=== PATIENT | male | born 1970 | race Caucasian/White ===

== ENCOUNTER 2020-11-01 16:55 | Outpatient (REF) | payer BC, SELFPAY ==
--- NOTE | 2020-11-01 | XR_ITS ---
EXAMINATION: XR CHEST CLINICAL INFORMATION: Fatigue. COMPARISON: Chest x-ray 05/19/2019 TECHNIQUE: 2 views of the chest were obtained. FINDINGS: No significant abnormality is noted involving the heart, lungs, mediastinum, bony thorax or soft tissues. XR/XR chest 2V IMPRESSION: Unremarkable examination.
[2020-11-01 17:39] LABS: Basophils Percent Auto 0.5 % (0-2); Eosinophils Absolute Auto 0.5 X10*3/uL (0.0-0.4); Eosinophils Percent Auto 7.2 % (0-4); Hematocrit 40.5 % (42-52); Hemoglobin 14.1 g/dl (14.0-18.0); Imm Gran Abs Auto 0.02 X10*3/uL (0.00-0.03); Imm Gran Pct Auto 0.3 % (0.0-0.4); Lymphocytes Absolute Auto 2.5 X10*3/uL (1.2-4.9); Lymphocytes Percent Auto 33.2 % (20-40); Mean Corpuscular HGB Conc 34.8 g/dl (31.0-36.0); Mean Corpuscular Hemoglobin 32.3 pg (27.0-33.0); Mean Corpuscular Volume 92.9 fL (80-98); Mean Platelet Volume 10.3 fL (9.4-12.4); Neutrophils Absolute Auto 3.4 X10*3/uL (2.0-8.3); Neutrophils Percent Auto 45.8 % (45-73); Platelet Count 218 X10*3/uL (160-400); Red Blood Count 4.36 X10*6/uL (4.60-5.80); Red Cell Distribution Width 11.3 % (11.0-16.0); White Blood Count 7.5 X10*3/uL (4.8-10.8)
[2020-11-01 17:41] LABS: MANUAL DIFF FLAG NO
[2020-11-01 18:15] LABS: Alanine Aminotransferase 21 U/L (0-40); Albumin Level 4.4 g/dL (3.5-5.0); Alkaline Phosphatase 46 U/L (39-117); Anion Gap 13 (12-20); Aspartate Amino Transferase 18 U/L (5-37); Bilirubin Total 0.4 mg/dL (0.0-1.0); Blood Urea Nitrogen 15 mg/dL (9-16); C Reactive Protein 0.12 mg/dL (< or = 0.50); Calcium 9.1 mg/dL (8.4-10.2); Carbon Dioxide 27 mmol/L (22-29); Chloride 104 mmol/L (96-108); Estimated Glomerular Filt Rate > 60; Glucose Random 88 mg/dL (60-115); Potassium 4.2 mmol/l (3.3-5.1); Sodium 140 mmol/L (135-145); Total Protein 7.1 g/dL (6.5-8.0)
[2020-11-01 18:36] LABS: Prostate Specific Antigen Scr 0.56 ng/mL (<0.05-4.0)
== END 2020-11-01 16:56 | disposition home or self-care (01) ==
LOC: HO.LAB 16:55
PROVIDERS: PCP Internal Medicine; Visit Provider Internal Medicine
DX: R53.83 Other fatigue (principal); E78.00 Pure hypercholesterolemia, unspecified; Z12.5 Encounter for screening for malignant neoplasm of prostate
CPT/HCPCS: 36415; 71046; 80053; 84153; 85025; 86140

== ENCOUNTER 2021-03-14 06:28 | Outpatient (REF) | payer BC, SELFPAY ==
[2021-03-14 07:18] LABS: MANUAL DIFF FLAG NO
[2021-03-14 07:20] LABS: Basophils Absolute Auto 0.1 X10*3/uL (0.0-0.2); Basophils Percent Auto 0.9 % (0-2); Eosinophils Absolute Auto 0.4 X10*3/uL (0.0-0.4); Eosinophils Percent Auto 7.1 % (0-4); Hematocrit 42.3 % (42-52); Hemoglobin 14.1 g/dl (14.0-18.0); Imm Gran Abs Auto 0.01 X10*3/uL (0.00-0.03); Imm Gran Pct Auto 0.2 % (0.0-0.4); Lymphocytes Absolute Auto 1.9 X10*3/uL (1.2-4.9); Mean Corpuscular HGB Conc 33.3 g/dl (31.0-36.0); Mean Corpuscular Hemoglobin 31.4 pg (27.0-33.0); Mean Corpuscular Volume 94.2 fL (80-98); Mean Platelet Volume 10.5 fL (9.4-12.4); Monocytes Absolute Auto 0.8 X10*3/uL (0.1-1.2); Monocytes Percent Auto 14.6 % (2-11); Neutrophils Absolute Auto 2.2 X10*3/uL (2.0-8.3); Neutrophils Percent Auto 41.2 % (45-73); Platelet Count 197 X10*3/uL (160-400); Red Blood Count 4.49 X10*6/uL (4.60-5.80); Red Cell Distribution Width 11.6 % (11.0-16.0); White Blood Count 5.3 X10*3/uL (4.8-10.8)
[2021-03-14 07:28] LABS: Glucose Urine UA NEG (NEG); Leukocyte Esterase Urine NEG (NEG); Nitrite Urine NEG (NEG); Specific Gravity - Urine 1.025 (1.005-1.025); Urine Blood NEG (NEG); Urine Ketones NEG (NEG); Urine Protein NEG (NEG-TRACE)
[2021-03-14 07:37] LABS: Appearance Urine CLEAR; Color Urine YELLOW
[2021-03-14 08:14] LABS: Alanine Aminotransferase 24 U/L (0-40); Albumin Level 4.4 g/dL (3.5-5.0); Alkaline Phosphatase 46 U/L (39-117); Anion Gap 9 (12-20); Aspartate Amino Transferase 20 U/L (5-37); Bilirubin Total 0.9 mg/dL (0.0-1.0); Blood Urea Nitrogen 12 mg/dL (9-16); Calcium 9.3 mg/dL (8.4-10.2); Carbon Dioxide 30 mmol/L (22-29); Chloride 104 mmol/L (96-108); Cholesterol 210 mg/dL; Estimated Glomerular Filt Rate > 60; Glucose Fasting 96 mg/dL (60-99); HDL Cholesterol 57 mg/dL; LDL Cholesterol Calculated 123 mg/dl; Potassium 4.4 mmol/L (3.3-5.1); Sodium 139 mmol/L (135-145); Total Protein 7.1 g/dL (6.5-8.0); Triglycerides 150 mg/dL
[2021-03-14 08:21] LABS: Vitamin D 25-OH Total 34.8 ng/mL (>30)
== END 2021-03-14 06:29 | disposition home or self-care (01) ==
LOC: HO.LAB 06:28
PROVIDERS: PCP Internal Medicine; Visit Provider Internal Medicine
DX: Z00.00 Encounter for general adult medical examination without abnormal findings (principal)
CPT/HCPCS: 36415; 80053; 80061; 81003; 82306; 85025

== ENCOUNTER 2021-07-27 17:12 | Outpatient (REF) | payer BC, SELFPAY ==
[2021-07-27 19:03] LABS: Alanine Aminotransferase 23 U/L (0-40); Albumin Level 4.6 g/dL (3.5-5.0); Alkaline Phosphatase 43 U/L (39-117); Anion Gap 14 (12-20); Aspartate Amino Transferase 22 U/L (5-37); Bilirubin Total 1.2 mg/dL (0.0-1.0); Blood Urea Nitrogen 16 mg/dL (9-16); Calcium 9.6 mg/dL (8.4-10.2); Carbon Dioxide 24 mmol/L (22-29); Chloride 103 mmol/L (96-108); Cholesterol 212 mg/dL; Estimated Glomerular Filt Rate > 60; Glucose Fasting 75 mg/dL (60-99); HDL Cholesterol 58 mg/dL; LDL Cholesterol Calculated 127 mg/dl; Potassium 3.9 mmol/L (3.3-5.1); Sodium 137 mmol/L (135-145); Total Protein 7.4 g/dL (6.5-8.0); Triglycerides 136 mg/dL
== END 2021-07-27 17:13 | disposition home or self-care (01) ==
LOC: HO.LAB 17:12
PROVIDERS: PCP Internal Medicine; Visit Provider Internal Medicine
DX: E78.00 Pure hypercholesterolemia, unspecified (principal); Z86.79 Personal history of other diseases of the circulatory system
CPT/HCPCS: 36415; 80053; 80061

== ENCOUNTER 2021-12-07 15:01 | Outpatient (REF) | payer BC, SELFPAY ==
[2021-12-07 15:51] LABS: Anion Gap 12 (12-20); Blood Urea Nitrogen 14 mg/dL (9-16); C Reactive Protein 0.22 mg/dL (< or = 0.50); Calcium 9.9 mg/dL (8.4-10.2); Carbon Dioxide 27 mmol/L (22-29); Chloride 104 mmol/L (96-108); Estimated Glomerular Filt Rate > 60; Glucose Random 87 mg/dL (60-115); Potassium 4.4 mmol/L (3.3-5.1); Sodium 139 mmol/L (135-145); Uric Acid 7.1 mg/dL (3.4-7.0)
== END 2021-12-07 15:02 | disposition home or self-care (01) ==
LOC: HO.LAB 15:01
PROVIDERS: PCP Internal Medicine; Visit Provider Internal Medicine
DX: M10.9 Gout, unspecified (principal)
CPT/HCPCS: 36415; 80048; 84550; 86140

== ENCOUNTER 2022-04-12 16:54 | Outpatient (REF) | payer BC, SELFPAY ==
[2022-04-12 17:06] LABS: MANUAL DIFF FLAG NO
[2022-04-12 17:40] LABS: Basophils Absolute Auto 0.1 X10*3/uL (0.0-0.2); Basophils Percent Auto 0.8 % (0-2); Eosinophils Absolute Auto 0.5 X10*3/uL (0.0-0.4); Eosinophils Percent Auto 6.3 % (0-4); Hematocrit 40.1 % (42.0-52.0); Hemoglobin 14.1 g/dl (14.0-18.0); Imm Gran Abs Auto 0.02 X10*3/uL (0.00-0.03); Imm Gran Pct Auto 0.3 % (0.0-0.4); Lymphocytes Absolute Auto 2.8 X10*3/uL (1.2-4.9); Lymphocytes Percent Auto 38.7 % (20-40); Mean Corpuscular HGB Conc 35.2 g/dl (31.0-36.0); Mean Corpuscular Hemoglobin 31.8 pg (27.0-33.0); Mean Corpuscular Volume 90.5 fL (80.0-98.0); Mean Platelet Volume 10.5 fL (9.4-12.4); Monocytes Percent Auto 14.3 % (2-11); Neutrophils Absolute Auto 2.9 x10*3/uL (2.0-8.3); Neutrophils Percent Auto 39.6 % (45-73); Platelet Count 201 X10*3/uL (160-400); Red Blood Count 4.43 X10*6/uL (4.60-5.80); Red Cell Distribution Width 11.9 % (11.0-16.0); White Blood Count 7.3 X10*3/uL (4.8-10.8)
[2022-04-12 17:46] LABS: Appearance Urine CLEAR; Color Urine YELLOW; Glucose Urine UA NEG (NEG); Leukocyte Esterase Urine NEG (NEG); Nitrite Urine NEG (NEG); PH 5.5 (5.0-8.0); Specific Gravity - Urine >= 1.030 (1.005-1.025); Urine Blood NEG (NEG); Urine Ketones NEG (NEG); Urine Protein NEG (NEG-TRACE)
[2022-04-12 18:00] LABS: Alanine Aminotransferase 26 U/L (0-40); Albumin Level 4.5 g/dL (3.5-5.0); Alkaline Phosphatase 50 U/L (39-117); Anion Gap 12 (12-20); Aspartate Amino Transferase 22 U/L (5-37); Blood Urea Nitrogen 15 mg/dL (9-16); Calcium 9.2 mg/dL (8.4-10.2); Carbon Dioxide 25 mmol/L (22-29); Chloride 103 mmol/L (96-108); Cholesterol 197 mg/dL; Estimated Glomerular Filt Rate > 60; Glucose Random 79 mg/dL (60-115); HDL Cholesterol 49 mg/dL; LDL Cholesterol Calculated 112 mg/dl; Sodium 136 mmol/L (135-145); Total Protein 7.3 g/dL (6.5-8.0); Triglycerides 184 mg/dL
[2022-04-12 18:22] LABS: Prostate Specific Antigen 0.42 ng/mL (<0.05-4.0)
== END 2022-04-12 16:55 | disposition home or self-care (01) ==
LOC: HO.LAB 16:54
PROVIDERS: PCP Internal Medicine; Visit Provider Internal Medicine
DX: Z00.00 Encounter for general adult medical examination without abnormal findings (principal); Z12.5 Encounter for screening for malignant neoplasm of prostate
CPT/HCPCS: 36415; 80053; 80061; 81003; 84153; 85025

== ENCOUNTER 2023-04-16 06:19 | Outpatient (REF) | payer BC, SELFPAY ==
[2023-04-16 06:28] LABS: MANUAL DIFF FLAG NO
[2023-04-16 07:44] LABS: Basophils Absolute Auto 0.1 X10*3/uL (0.0-0.2); Basophils Percent Auto 0.7 % (0-2); Eosinophils Absolute Auto 0.6 X10*3/uL (0.0-0.4); Eosinophils Percent Auto 8.6 % (0-4); Hematocrit 42.8 % (42.0-52.0); Hemoglobin 14.6 g/dl (14.0-18.0); Imm Gran Abs Auto 0.02 X10*3/uL (0.00-0.03); Imm Gran Pct Auto 0.3 % (0.0-0.4); Lymphocytes Absolute Auto 2.6 X10*3/uL (1.2-4.9); Lymphocytes Percent Auto 38.1 % (20-40); Mean Corpuscular HGB Conc 34.1 g/dl (31.0-36.0); Mean Corpuscular Hemoglobin 31.9 pg (27.0-33.0); Mean Corpuscular Volume 93.4 fL (80.0-98.0); Mean Platelet Volume 10.9 fL (9.4-12.4); Neutrophils Absolute Auto 2.5 x10*3/uL (2.0-8.3); Neutrophils Percent Auto 37.3 % (45-73); Platelet Count 190 X10*3/uL (160-400); Red Blood Count 4.58 X10*6/uL (4.60-5.80); Red Cell Distribution Width 11.8 % (11.0-16.0); White Blood Count 6.7 X10*3/uL (4.8-10.8)
[2023-04-16 07:59] LABS: Alanine Aminotransferase 30 U/L (0-40); Albumin Level 4.5 g/dL (3.5-5.0); Alkaline Phosphatase 48 U/L (39-117); Anion Gap 14 (12-20); Aspartate Amino Transferase 28 U/L (5-37); Bilirubin Total 1.5 mg/dL (0.0-1.0); Blood Urea Nitrogen 14 mg/dL (9-16); Calcium 9.7 mg/dL (8.4-10.2); Carbon Dioxide 25 mmol/L (22-29); Chloride 105 mmol/L (96-108); Cholesterol 191 mg/dL; Estimated Glomerular Filt Rate > 60; Glucose Fasting 100 mg/dL (60-99); HDL Cholesterol 54 mg/dL; LDL Cholesterol Calculated 110 mg/dl; Sodium 140 mmol/L (135-145); Total Protein 7.5 g/dL (6.5-8.0); Triglycerides 138 mg/dL
== END 2023-04-16 06:20 | disposition home or self-care (01) ==
LOC: HO.LAB 06:19
PROVIDERS: PCP Internal Medicine; Visit Provider Internal Medicine
DX: I25.10 Atherosclerotic heart disease of native coronary artery without angina pectoris (principal); E78.00 Pure hypercholesterolemia, unspecified
CPT/HCPCS: 36415; 80053; 80061; 85025

== ENCOUNTER 2024-03-25 06:21 | Outpatient (REF) | payer BC, SELFPAY ==
[2024-03-25 06:42] LABS: MANUAL DIFF FLAG NO
[2024-03-25 07:56] LABS: Appearance Urine Clear; Color Urine Yellow; Glucose Urine UA Negative (Negative); Leukocyte Esterase Urine Negative (Negative); Nitrite Urine Negative (Negative); Urine Blood Negative (Negative); Urine Ketones Negative (Negative); Urine Protein Negative (Neg-Trace)
[2024-03-25 07:57] LABS: Basophils Absolute Auto 0.1 X10*3/uL (0.0-0.2); Basophils Percent Auto 1.3 % (0-2); Eosinophils Absolute Auto 0.4 X10*3/uL (0.0-0.4); Eosinophils Percent Auto 6.3 % (0-4); Hemoglobin 14.5 g/dl (14.0-18.0); Imm Gran Abs Auto 0.01 X10*3/uL (0.00-0.03); Imm Gran Pct Auto 0.2 % (0.0-0.4); Lymphocytes Absolute Auto 2.3 X10*3/uL (1.2-4.9); Lymphocytes Percent Auto 38.1 % (20-40); Mean Corpuscular HGB Conc 34.5 g/dl (31.0-36.0); Mean Corpuscular Hemoglobin 31.9 pg (27.0-33.0); Mean Corpuscular Volume 92.3 fL (80.0-98.0); Mean Platelet Volume 10.5 fL (9.4-12.4); Monocytes Percent Auto 16.1 % (2-11); Neutrophils Absolute Auto 2.3 x10*3/uL (2.0-8.3); Platelet Count 226 X10*3/uL (160-400); Red Blood Count 4.55 X10*6/uL (4.60-5.80); Red Cell Distribution Width 11.8 % (11.0-16.0); White Blood Count 6.1 X10*3/uL (4.8-10.8)
[2024-03-25 08:19] LABS: Alanine Aminotransferase 25 U/L (0-40); Albumin Level 4.2 g/dL (3.5-5.0); Alkaline Phosphatase 47 U/L (39-117); Anion Gap 11 (12-20); Aspartate Amino Transferase 24 U/L (5-37); Bilirubin Total 1.2 mg/dL (0.0-1.0); Blood Urea Nitrogen 15 mg/dL (9-16); Calcium 9.4 mg/dL (8.4-10.2); Carbon Dioxide 28 mmol/L (22-29); Chloride 106 mmol/L (96-108); Cholesterol 178 mg/dL (<200); Estimated Glomerular Filt Rate > 60; Glucose Fasting 96 mg/dL (60-99); HDL Cholesterol 51 mg/dL (>40); LDL Cholesterol Calculated 99 mg/dL (<100); Potassium 3.6 mmol/L (3.3-5.1); Sodium 141 mmol/L (135-145); Total Protein 7.2 g/dL (6.5-8.0); Triglycerides 140 mg/dL (<150)
[2024-03-25 08:41] LABS: Prostate Specific Antigen 0.46 ng/mL (<0.05-4.0)
== END 2024-03-25 06:22 | disposition home or self-care (01) ==
LOC: HO.LAB 06:21
PROVIDERS: PCP Internal Medicine; Visit Provider Internal Medicine
DX: I25.10 Atherosclerotic heart disease of native coronary artery without angina pectoris (principal); E78.00 Pure hypercholesterolemia, unspecified; Z12.5 Encounter for screening for malignant neoplasm of prostate; Z87.891 Personal history of nicotine dependence
CPT/HCPCS: 36415; 80053; 80061; 81003; 84153; 85025

== ENCOUNTER 2024-05-04 16:58 | Outpatient (REF) | payer BC, SELFPAY ==
[2024-05-04 17:06] LABS: MANUAL DIFF FLAG NO
[2024-05-04 17:23] LABS: Basophils Absolute Auto 0.1 X10*3/uL (0.0-0.2); Basophils Percent Auto 1.1 % (0-2); Eosinophils Absolute Auto 0.5 X10*3/uL (0.0-0.4); Eosinophils Percent Auto 6.2 % (0-4); Hematocrit 39.5 % (42.0-52.0); Hemoglobin 13.7 g/dl (14.0-18.0); Imm Gran Abs Auto 0.01 X10*3/uL (0.00-0.03); Imm Gran Pct Auto 0.1 % (0.0-0.4); Lymphocytes Absolute Auto 2.7 X10*3/uL (1.2-4.9); Lymphocytes Percent Auto 36.3 % (20-40); Mean Corpuscular HGB Conc 34.7 g/dl (31.0-36.0); Mean Corpuscular Hemoglobin 32.2 pg (27.0-33.0); Mean Corpuscular Volume 92.9 fL (80.0-98.0); Mean Platelet Volume 10.3 fL (9.4-12.4); Monocytes Absolute Auto 1.1 X10*3/uL (0.1-1.2); Monocytes Percent Auto 14.7 % (2-11); Neutrophils Absolute Auto 3.1 x10*3/uL (2.0-8.3); Neutrophils Percent Auto 41.6 % (45-73); Platelet Count 200 X10*3/uL (160-400); Red Blood Count 4.25 X10*6/uL (4.60-5.80); Red Cell Distribution Width 11.8 % (11.0-16.0); White Blood Count 7.4 X10*3/uL (4.8-10.8)
[2024-05-04 17:41] LABS: Alanine Aminotransferase 29 U/L (0-40); Albumin Level 4.3 g/dL (3.5-5.0); Alkaline Phosphatase 52 U/L (39-117); Anion Gap 12 (12-20); Aspartate Amino Transferase 25 U/L (5-37); Bilirubin Total 0.6 mg/dL (0.0-1.0); Blood Urea Nitrogen 19 mg/dL (9-16); Calcium 9.4 mg/dL (8.4-10.2); Carbon Dioxide 26 mmol/L (22-29); Chloride 106 mmol/L (96-108); Estimated Glomerular Filt Rate > 60; Glucose Random 98 mg/dL (60-115); Potassium 3.9 mmol/L (3.3-5.1); Sodium 140 mmol/L (135-145); Total Protein 7.3 g/dL (6.5-8.0); Uric Acid 6.9 mg/dL (3.4-7.0)
== END 2024-05-04 16:59 | disposition home or self-care (01) ==
LOC: HO.LAB 16:58
PROVIDERS: PCP Internal Medicine; Visit Provider Internal Medicine
DX: M10.9 Gout, unspecified (principal); E78.00 Pure hypercholesterolemia, unspecified
CPT/HCPCS: 36415; 80053; 84550; 85025

== ENCOUNTER 2024-08-17 08:46 | Day surgery (SDC) | payer BC, SELFPAY ==
[2024-08-13 14:41] VITALS: BMI 26.6
--- NOTE | 2024-08-16 13:30 | HO.ANESPROP2 ---
HPI - Anesthesia Eval Consult details Narrative: 53yo M for Colonoscopy PMFSH Past Medical History Medical History Dental root implant present Eczema Gout Elevated cholesterol Surgical History Surgical History History of colonoscopy Hx of cardiac catheterization Social History Social History Patient Tobacco Use Status: Former Tobacco user Tobacco use type: Cigarette Use of substances other than those prescribed or required for medical reasons: No Are you DNR?: No Advance Directives: No Advance Directives Information Provided: Yes Advance Directives on File: No Nutrition Risks: No Nutritional Risk Poor oral hygiene: No Meds Allergies Allergy/AdvReac Type Severity Reaction Status Date / Time environmental allergies Allergy Intermediate hayfever Verified 08/13/24 14:38 symptoms Home Medications ?Medication ?Instructions ?Recorded ?Confirmed ?Last Taken ?Type allopurinol 100 mg tablet 100 mg PO DAILY 08/13/24 08/13/24 Unknown History aspirin 81 mg tablet,delayed 81 mg PO DAILY 08/13/24 08/13/24 Unknown History release atorvastatin 40 mg tablet 40 mg PO BEDTIME 08/13/24 08/13/24 Unknown History multivitamin 1 tab PO DAILY 08/13/24 08/13/24 Unknown History sildenafil 50 mg tablet 25 - 50 mg PO Q OTHER DAY PRN 08/13/24 08/13/24 Unknown History Erectile Dysfunction Exam Height,Weight and Vital Signs: Height 5 ft 8.75 in Weight 81.193 kg Pertinent Lab Results Pertinent Lab Results: Laboratory Tests 05/04/24 17:05 WBC 7.4 Hgb 13.7 L Hct 39.5 L Plt Count 200 Sodium 140 Potassium 3.9 Chloride 106 Carbon Dioxide 26 BUN 19 H Creatinine 1.06 Assessment and Plan Assessment Anesthesia Assessment: Chart Reviewed
[2024-08-17 09:28] VITALS: BMI 25.7
[2024-08-17 09:34] VITALS: BP 140/107; PULSE 102; RESP 16; TEMP 36.9
[2024-08-17 09:43] VITALS: PULSE 80
[2024-08-17] MEDS: Lactated Ringers 1,000 ML 100 ML IVCONT (09:50)
--- NOTE | 2024-08-17 10:10 | P.CONAN_ITS ---
[facility] Past Medical History Medical History Dental root implant present Eczema Gout Elevated cholesterol Functional capacity: independent ambulation Family History Family history of problems with anesthesia: No Surgical History Surgical History History of colonoscopy Hx of cardiac catheterization History of Problems with Anesthesia: No Social History Social History Patient Tobacco Use Status: Former Tobacco user Tobacco use type: Cigarette Use of substances other than those prescribed or required for medical reasons: No Are you DNR?: No Advance Directives: No Advance Directives Information Provided: Yes Advance Directives on File: No Nutrition Risks: No Nutritional Risk Poor oral hygiene: No Meds Allergies Allergy/AdvReac Type Severity Reaction Status Date / Time environmental allergies Allergy Intermediate hayfever Verified 08/13/24 14:38 symptoms Active Medications: Current Medications Lactated Ringer's (Lr) 1,000 mls @ 100 mls/hr IVCONT .Q10H YASMIN Last Admin: 08/17/24 09:50 Dose: 100 mls/hr Home Medications ?Medication ?Instructions ?Recorded ?Confirmed ?Last Taken ?Type allopurinol 100 mg tablet 100 mg PO DAILY 08/13/24 08/13/24 Unknown History aspirin 81 mg tablet,delayed 81 mg PO DAILY 08/13/24 08/13/24 Unknown History release atorvastatin 40 mg tablet 40 mg PO BEDTIME 08/13/24 08/13/24 Unknown History multivitamin 1 tab PO DAILY 08/13/24 08/13/24 Unknown History sildenafil 50 mg tablet 25 - 50 mg PO Q OTHER DAY PRN 08/13/24 08/13/24 Unknown History Erectile Dysfunction Exam Height,Weight and Vital Signs: Height 5 ft 9 in Weight 79.095 kg Last Vital Signs Temp 98.4 F 08/17/24 09:34 Pulse 80 08/17/24 09:43 Resp 16 08/17/24 09:34 BP 140/107 H 08/17/24 09:34 O2 Del Method Room Air 08/17/24 09:34 Airway Mallampati Class: II TM Dist: >3cm Neck ROM: Full Heart: RRR Lungs: CTA Assessment and Plan Assessment Anesthesia Assessment: Anesthesia Plan Discussed and Chart Reviewed Final Anesthetic Review Family History of Problems with Anesthesia: No History of Problems with Anesthesia: No NPO: Yes ASA Class: II Final Preanesthetic Review: Meds/Donygs Chart Reviewed, Consent Obtained/Reviewed and Anes Risks/Benef Reviewed Patient Risk: Low Procedure Risk: Low Anesthetic Plan Anesthetic Plan: MAC: Disposition: Standard PACU
--- NOTE | 2024-08-17 10:25 | MHC.SHP ---
Pre-Procedural Eval Section A - 24 Hr Update-Section A only Date of Service: 08/17/24 The patient is an INPATIENT: No Changes since office visit: No Cold of Flu in the past 2 weeks, No New Medical Problems, No Changes in Medication and No Patient answered all questions The patient has been examined within 24 hours of the surgical procedure. The History & Physical has been completed within 30 days and I have reviewed it.: Yes Section B - Complete if H&P > 30 days Chief Complaint: Encounter for screening for malignant neoplasm of Allergies: Allergies Allergy/AdvReac Type Severity Reaction Status Date / Time environmental allergies Allergy Intermediate hayfever Verified 08/13/24 14:38 symptoms Plan I have reviewed the history and physical and performed a pertinent physical examination on my patient. No changes have occurred unless specified. Time Spent With Patient Time: Total time managing care of this patient today ____ minutes.
[2024-08-17 10:51] VITALS: BP 126/86; PULSE 86; RESP 16; TEMP 36.4; O2SAT 97
--- NOTE | 2024-08-17 10:56 | HO.POSTANES ---
Post Anesthesia Evaluation Post Anesthesia Evaluation Date of Service: 08/17/24 Vital Signs: Vital Signs Temp Pulse Resp BP Pulse Ox O2 Del Method 08/17/24 10:51 97.6 F 86 16 126/86 97 Room Air 08/17/24 09:43 80 08/17/24 09:34 98.4 F 102 H 16 140/107 H Room Air Anesthesia: Monitored Mental Status: Awake Pain Control: Satisfactory Nausea/Vomiting: None Hydration: Adequate Anesthesia-Related Issues: No Anes. Related Issues
[2024-08-17 11:06] VITALS: BP 123/90; PULSE 90; RESP 18; TEMP 36.1; O2SAT 100
--- NOTE | 2024-08-17 11:06 | OP_ITS ---
DATE OF SERVICE: 08/17/2024 SURGEON: Salvatore Shankar MD INDICATIONS: Colon cancer screening. PREOPERATIVE DIAGNOSIS: POSTOPERATIVE DIAGNOSIS: PROCEDURE PERFORMED: Colonoscopy to the terminal ileum with snare polypectomy. ESTIMATED BLOOD LOSS: COMPLICATIONS: ANESTHESIA: Monitored anesthesia care. ASSISTANTS: SPECIMENS: DESCRIPTION OF PROCEDURE: A history and physical was performed. The risks and benefits of the procedure explained to the patient. Informed consent was obtained. The patient was placed in the left lateral decubitus position. A digital rectal exam was performed and was found to be normal. The Olympus pediatric video colonoscope was introduced into the rectum and advanced to the cecum. The cecum was identified by transillumination, palpation, and identification of ileocecal valve. Examination was performed. The scope was removed. He tolerated the procedure well and was returned to the recovery area in stable condition. FINDINGS: The terminal ileum was examined and appeared normal. The visualized colonic mucosa was normal. The quality of the prep was good. There was mild scattered sigmoid diverticulosis and a few diverticula in the right colon. At 25 cm from the anal verge was a less than 10 mm sessile polyp, which was removed with a hot snare and recovered via suction. No other polyps were identified. Retroflexed examination was normal. IMPRESSION: Colon polyp. RECOMMENDATION: Follow up the biopsy results. MD AICHA Kohler/MARIELENA / [id number]
== END 2024-08-17 11:33 | disposition home or self-care (01) ==
PROVIDERS: PCP Internal Medicine; Visit Provider Internal Medicine Gastroenterology
PROC: 0DJD8ZZ Inspection of Lower Intestinal Tract, Via Natural or Artificial Opening Endoscopic (ICD-10-PCS; CPT 45378; principal; 2024-08-17 10:50)
DX: Z12.11 Encounter for screening for malignant neoplasm of colon (principal); Z83.719 Family history of colon polyps, unspecified; D12.5 Benign neoplasm of sigmoid colon; K57.30 Diverticulosis of large intestine without perforation or abscess without bleeding; K58.0 Irritable bowel syndrome with diarrhea; E78.5 Hyperlipidemia, unspecified; M10.9 Gout, unspecified; Z79.82 Long term (current) use of aspirin; Z79.899 Other long term (current) drug therapy; Z87.891 Personal history of nicotine dependence
CPT/HCPCS: 45385; 88305; J2003; J2704

== ENCOUNTER 2025-01-26 16:49 | Outpatient (REF) | payer BC, SELFPAY ==
[2025-01-26 17:17] LABS: Appearance Urine Clear; Color Urine Yellow; Glucose Urine UA Negative (Negative); Leukocyte Esterase Urine Negative (Negative); Nitrite Urine Negative (Negative); Urine Blood Negative (Negative); Urine Ketones Negative (Negative); Urine Protein Negative (Neg-Trace)
--- OUTSIDE RECORDS SUMMARY | 2025-01-26 18:09 | XMS_ITS ---
Author Organization [facility] Address [address] [place] [address] Care Team Providers Care Vice President Of Engineering Name Role Phone Braden Sheets MD Primary Care Provider UnavailSalvatore العراقي Jr REASON FOR VISIT screening Encounters Encounter Location Date Provider Diagnosis [facility] [place] Out[place] [address], [place] [phone] 08/17/2024 Salvatore Shankar Jr Colon cancer screening Z12.11 and Colon polyps K63.5 Assessments Encounter Date Diagnosis (ICD Code) Assessment Notes Treatment Notes Treatment Clinical Notes Section Notes 08/17/2024 Colon cancer screening (ICD-10 - Z12.11) 08/17/2024 Colon polyps (ICD-10 - K63.5) Plan Of Treatment No Information Progress Notes * DORENE COBIANWDOB: [birth year] (54 yo M)Acc No.[id number]:08/17/2024 COLON WITH MAC Patient:?JERRI COBIAN Provider:?Salvatore Shankar MD :1970???Age:53 Y???Sex:Male Kranthi e:08/17/2024 Address:[address] [place] [address] Pcp:Braden Sheets MD Subjective: * Chief Complaints: * ???1. Screening. * Medical History:? Objective: * Vitals:? Assessment: * Assessment: 1.?Colon cancer screening - Z12.11 (Primary)???2.?Colon polyps - K63.5??? Plan: * Treatment: * Procedure Codes:?28360 LESIO N REMOVAL COLONOSCOPY * * The named appointment provid er may or may not be the originator of this progress note, and it is not deemed complete until electronically signed by the appointment provider. Sign off status: Pending * Provider:?Salvatore Shankar MD Date:?1 Generated for Zacarias chapa/Branden/Roxiitting on:?01/26/2025 06:09 PM EDT
--- OUTSIDE RECORDS SUMMARY | 2025-01-26 18:09 | XMS_ITS | Patient Health Record ---
Author Organization [facility] Address [address] [place] [address] Care Team Providers Care Tipple Oiler Name Role Phone Braden Sheets MD Primary Care Provider Salvatore Schumacher Jr Unavailable Allergies Allergen (clinical drug ingredient) Drug/Non Drug Allergy documented on EMR Reaction Allergy Type Onset Date Status hayfever (uncoded) Unknown Allergy A ctive Pollen pollen (uncoded) Unknown Allergy Act pato grass (uncoded) Unknown Allergy Acti ve Results Component Value Reference Range Notes Pathology Reviewed date:08/25/2024 07:59:05 AM Interpretation: Performing Lab:[facility], [address] [place] [phone] Notes/Report: Name: Jerri Alan Age/Sex: 53/M : 1970 Unit#: [id number] Attend Dr: Salvatore Shankar MD Re08/17/24 Status : [facility] Location: [facility] Disch: SPEC : [id number] RECD : 08/17/24 STATUS: SONIYA LUGO NUM: [id number] JESENIA: 08/17/[address]: Salvatore Shankar MD ENTERED: 08/17/24 53 SP TYPE: Surgical OTHR DR: Braden Sheets MD ORDERED: HE Stain/3, Gross Micro L4 Diagnosis Colon, 25 cm, polype ctomy: Tubular adenoma; negative for high-grade dysplasia or carcinoma. Clinical History Pre-Op Dx: Screening Post-Op Dx: Colon polyp Microscopic Description Microscopic sections reviewed. Material Received Polyp at 25 Gross Description Received in formalin labeled ?polyp at 25? is a 0.6 x 0.5 x 0.4 cm congested and hemorrhagic red-maroon papular t issue fragment, bisected and entirely submitted in a cassette labeled A. CEDS Copies To: Salvatore Shankar MD [facility] [address] [place] [address] [address] [place], [place] [phone] Braden Sheets MD [facility] [address] [place] [address] Signed (si gnature on file) Ricky Irwin MD 08/19/24 1045 END OF REPORT Reason For Referral No Information Medications Medication SIG (Take, Route, Frequency, Duration) Notes Start Date End Date Status Mayte Not-Taking Allopurinol 100 MG TAKE 1 TABLET BY JOLLY TH DAILY Oral for 90 Active Atorvastatin Calcium 40 MG Oral for 90 Active Viagra 100 MG take 1 tablet by jolly th once daily if needed Oral for 3 Not-Taking Metamucil Active Probiotic Active Centrum Adult 50+ MultiGummies - as directed Orally Active Aspir-81 81 MG 1 tablet Orally Once a day Active Social History Tobacco Use: Social History Observation Description Date Details (start date - stop date) Former Smoker NA - NA Tobacco Use/Smoking Question Answer Notes Patient is a former smoker How long has it been since you last smoked? 1-5 years Alcohol Screen Question Answer Notes Did you have a drink contain ing alcohol in the past year? Yes How often did you have a dri nk containing alcohol in the past year? 4 or more times a week (4 points) How many drinks did you have on a typical day when you were drinking in the past year? 3 or 4 drinks (1 point) How often did you have 6 or more drinks on one occasion in the past year? Never (0 point) Points 5 Interpretation Positive Section Notes: 2019 quit smoking Problems Problem Type SNOMED Code ICD Code Onset Dates Problem Status W/U Status Risk Notes Problem 354137906 Colon cancer screening (Z12.11) Active confirmed Problem 379486533 Irritable bowel syndrome with diarrhea (K58.0) Active confirmed Problem 386462184 Long-term use of aspirin therapy (Z79.82) Active confirmed Vital Signs Blood pressure diastolic 00 mm Hg 07/29/2024 Height 68.75 in 07/29/2024 Blood pressure systolic 00 mm Hg 07/29/2024 Weight 179 lbs 07/29/2024 BMI 26.62 kg/m2 07/29/2024 Encounters Encounter Location Date Provider Diagnosis [facility] [place] [address] [place] [phone] 08/17/2024 Salvatore Shankar Jr Colon cancer screening Z12.11 and Colon polyps K63.5 [facility] [address] [facility] [address] [place] [address] 07/29/2024 Salvatore Shankar Jr Colon cancer screening Z12.11 ; Irritable bowel syndrome with diarrhea K58.0 and Long-term use of aspirin therapy Z79.82 [facility] [address] [place] [address] 08/10/2024 Salvatore Shankar Jr [facility] [address] [place] [address] 08/25/2024 Salvatore Shankar Jr Assessments Encounter Date Diagnosis (ICD Code) Assessment Notes Treatment Notes Treatment Clinical Notes Section Notes 08/17/2024 Colon cancer screening (ICD-10 - Z12.11) 08/17/2024 Colon polyps (ICD-10 - K63.5) 07/29/2024 Colon cancer screening (ICD-10 - Z12.11) We discussed colonoscopy today. We discussed risks and benefits of the procedure today. He understands these and agrees to proceed. We discussed his symptoms which appear consistent with irritable bowel syndrome with diarrhea. We discussed management of this. He is advised stop aspirin one week before the procedure. 07/29/2024 Irritable bowel syndrome with diarrhea (ICD-10 - K58.0) We discussed colonoscopy today. We discussed risks and benefits of the procedure today. He understands these and agrees to proceed. We discussed his symptoms which appear consistent with irritable bowel syndrome with diarrhea. We discussed management of this. He is advised stop aspirin one week before the procedure. 07/29/2024 Long-term use of aspirin therapy (ICD-10 - Z79.82) We discussed colonoscopy today. We discussed risks and benefits of the procedure today. He understands these and agrees to proceed. We discussed his symptoms which appear consistent with irritable bowel syndrome with diarrhea. We discussed management of this. He is advised stop aspirin one week before the procedure. Plan Of Treatment Future Test Test Name Order Date COLONOSCOPY 02/23/2014 COLONOSCOPY 07/29/2024 Insurance Providers Payer Name Payer Address Payer Phone Subscriber Number Group Number Insured Name Patient Relationship to Insured Coverage Start Date Coverage End Date [facility] [address] [place], [place] [id number] JERRI ALAN Self - patient is the insured Medical (General) History Medical History History ICD Code Environmental allergies Hyperlipidemia Gout Cardiac catheterization, negative for si gnificant CAD Surgical History Surgery Date(Month/Year)
--- OUTSIDE RECORDS SUMMARY | 2025-01-26 18:09 | XMS_ITS ---
Author Organization [facility] Address [address] [place] [address] Care Team Providers Care Sports Coordinator Name Role Phone Braden Sheets MD Primary Care Provider Salvatore Schumacher Jr REASON FOR VISIT pathology Encounters Encounter Location Date Provider Diagnosis [facility] [address] [place] [address] 08/25/2024 Salvatore Shankar Jr Plan Of Treatment No Information Progress Notes * DORENE COBIANWDOB: [birth year] (53 yo M)Acc No.[id number]:08/25/2024 Patient:?JERRI COBIAN :1970???Age:53 Y???Sex:Male Address:[address] [place] [address], [place], [address] * true * Date:? Generated for Ortizi eduard/Branden/eTransmitting on:?01/26/2025 06:09 PM EDT
--- OUTSIDE RECORDS SUMMARY | 2025-01-26 18:10 | XMS_ITS ---
Author Organization [facility] Address [address] [place] [address] Care Team Providers Care Reprographics Associate Name Role Phone Braden Sheets MD Primary Care Provider Amanda Shankar Jr, Salvatore Gustafson REASON FOR VISIT please lock 07-29-24 office note Encounters Encounter Location Date Provider Diagnosis [facility] [address] [place] [address] 08/10/2024 Salvatore Shankar Jr Plan Of Treatment No Information Progress Notes * DORENE COBIANWDOB: [birth year] (53 yo M)Acc No.[id number]:08/10/2024 Patient:?JERRI COBIAN :1970???Age:53 Y???Sex:Male Address:[address] [place] [address], [place], [address] * true * Date:? Generated for Zacarias chapa/Branden/eTransmitting on:?01/26/2025 06:09 PM EDT
== END 2025-01-26 16:50 | disposition home or self-care (01) ==
LOC: HO.LAB 16:49
PROVIDERS: PCP Internal Medicine; Visit Provider Internal Medicine
DX: R30.0 Dysuria (principal)
CPT/HCPCS: 81003

== ENCOUNTER 2025-02-14 09:41 | Outpatient (AMB) | payer BC, SELFPAY ==
--- OUTSIDE RECORDS SUMMARY | 2025-02-14 09:44 | XMS_ITS ---
Author Organization [facility] Address [address] [place] [address] Care Team Providers Care Hotel Valet Attendant Name Role Phone Braden Sheets MD Primary Care Provider UnavailSalvatore العراقي Jr REASON FOR VISIT screening Encounters Encounter Location Date Provider [place] [facility] [place] [address] [place], [place] [phone] 08/17/2024 Salvatore Shankar Jr Colon cancer screening Z12.11 and Colon polyps K63.5 Assessments Encounter Date Diagnosis (ICD Code) Assessment Notes Treatment Notes Treatment Clinical Notes Section Notes 08/17/2024 Colon cancer screening (ICD-10 - Z12.11) 08/17/2024 Colon polyps (ICD-10 - K63.5) Plan Of Treatment No Information Progress Notes * DORENE COBIANWDOB: [birth year] (54 yo M)Acc No.[id number]:08/17/2024 COLON WITH MAC Patient:?JERRI COBIAN Provider:?Salvatore Shankar MD :1970???Age:53 Y???Sex:Male Kranthi e:08/17/2024 Address:[address] [place] [address], [place], [place] Pcp:Braden Sheets MD Subjective: * Chief Complaints: * ???1. Screening. * Medical History:? Objective: * Vitals:? Assessment: * Assessment: 1.?Colon cancer screening - Z12.11 (Primary)???2.?Colon polyps - K63.5??? Plan: * Treatment: * Procedure Codes:?61537 LESIO N REMOVAL COLONOSCOPY * * The named appointment provid er may or may not be the originator of this progress note, and it is not deemed complete until electronically signed by the appointment provider. Sign off status: Pending * Provider:?Salvatore Shankar MD Date:?1 Generated for Zacarias chapa/Branden/Roxiitting on:?02/14/2025 09:44 AM EDT
--- OUTSIDE RECORDS SUMMARY | 2025-02-14 09:44 | XMS_ITS | Patient Health Record ---
Author Organization [facility] Address [address] [place] [address] Care Team Providers Care National Van Owner Operator Name Role Phone Braden Sheets MD Primary [...] AM Interpretation: Performing Lab:[facility], [address] [place] [phone] Notes/Report: Name: Jerri Alan Age/Sex: 53/M : 1970 Unit#: [id number] Attend Dr: Salvatore Shankar MD Re08/17/24 Status : [facility] Disch: SPEC : [id number] RECD : 08/17/24 STATUS: SONIYA LUGO NUM: [id number] JESENIA: 08/17/[address]: Salvatore Shankar MD [...] A. CEDS Copies To: Salvatore Shankar MD [facility] [address] [place] [address] [address] [place], [place] [phone] Braden Sheets MD [facility] [address] [place] [address] Signed (si gnature on file) Ricky Irwin [...] Problem Status W/U Status Risk Notes Problem 416099407 Colon cancer screening (Z12.11) Active confirmed Problem 799353495 Irritable bowel syndrome with diarrhea (K58.0) Active confirmed Problem 158074396 Long-term use of aspirin therapy (Z79.82) Active confirmed Vital Signs Blood pressure diastolic 00 mm Hg 07/29/2024 Height 68.75 in 07/29/2024 Blood pressure systolic 00 mm Hg 07/29/2024 Weight 179 lbs 07/29/2024 BMI 26.62 kg/m2 07/29/2024 Encounters Encounter Location Date Provider Diagnosis [facility] Outpatient [address] [place], [place] [phone] 08/17/2024 Salvatore Shankar Jr Colon cancer screening Z12.11 and Colon polyps K63.5 [facility] [address] [place] [address] 07/29/2024 Salvatore Shankar Jr Colon cancer screening Z12.11 ; Irritable bowel syndrome with diarrhea K58.0 and Long-term use of aspirin therapy Z79.82 [facility] [address] [place] [address] 08/10/2024 Salvatore Shankar Jr [facility] [address] [place] [address] 08/25/2024 Salvatore Shankar Jr Assessments Encounter Date [...] Insured Coverage Start Date Coverage End Date [facility] [address] [place], [place] [id number] JERRI ALAN Self - patient is the insured Medical (General) History Medical History History ICD Code Environmental allergies Hyperlipidemia Gout Cardiac catheterization, negative for si gnificant CAD Surgical History Surgery Date(Month/Year)
--- OUTSIDE RECORDS SUMMARY | 2025-02-14 09:45 | XMS_ITS ---
Author Organization [facility] Address [address] [place] [address] Care Team Providers Care Treasury Manager Name Role Phone Braden Sheets MD Primary Care Provider Amanda Shankar Jr, Salvatore Gustafson REASON FOR VISIT please lock 07-29-24 office note Encounters Encounter Location Date Provider Diagnosis [facility] [address] [place] [address] 08/10/2024 Salvatore Shankar Jr Plan Of Treatment No Information Progress Notes * DORENE COBIANWDOB: [birth year] (53 yo M)Acc No.[id number]:08/10/2024 Patient:?JERRI COBIAN :1970???Age:53 Y???Sex:Male Address:[address] [place] [address], [place], [address] * true * Date:? Generated for Zacarias chapa/Branden/eTransmitting on:?02/14/2025 09:44 AM EDT
--- NOTE | 2025-02-14 09:51 | A.OFFPC_ITS ---
Vital Signs 02/14/25 09:53 Height 5 ft 7 in Weight 177 lb BMI 27.7 BP 124/80 Blood Pressure Location Lt brachial Position Sitting Pulse 80 Pulse Source Pulse Oximeter Temp 97.9 F Temp Source Axillary Pulse Oximetry (%) 98 Oxygen Delivery Method Room Air Intake Visit Reasons: UTI Issues Photoradio Operator Required: No Accompanied by: Self / Same As Patient Allergies environmental allergies Allergy (Intermediate, Verified 02/14/25 10:36) hayfever symptoms Medication List - Last Reconciled 02/14/25 by José Nj MD allopurinol 100 mg PO DAILY aspirin 81 mg PO DAILY atorvastatin 40 mg PO BEDTIME multivitamin 1 tab PO DAILY sildenafil 25 - 50 mg PO Q OTHER DAY PRN Tobacco use date assessed: 02/14/25 Dental Screening Dental Screen Date: 02/14/25 Did you have a dental visit in the last 12 months?: Yes Did you have a dental problem in the last 6 months where you did not have access to dental care?: No HPI UTI Issues HPI Details 54-year-old male presents to the office to discuss a few issues. Patient has reported intermittent burning around his penis. Occasionally he has noticed some redness in the same area. No discharge. Patient has been in a single relationship for the past 20 years. Recently had urinalysis done. Apart from that, patient reports mild exertional shortness a breath. 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 He is able to function and do activities of daily living. Denies any chest pains or palpitations. No nausea or vomiting. He reports at the onset of symptoms he had a choking episode. Quit smoking 5 years ago. Patient admits to drinking 1-2 drinks a day. [facility] Medical History (Updated 02/14/25 @ 10:39 by José Nj MD) Hyperlipidemia Dental root implant present Eczema Gout Surgical History History of colonoscopy (~08/17/24) Hx of cardiac catheterization Family History Mother No problems noted. Father No problems noted. Social History Housing: House Patient Tobacco Use Status: Former Tobacco user Tobacco use type: Cigarette e-Cigarette/Vaping Use: Former Use service: No Current occupational status: employed Cognitive needs: No Hearing needs: No Vision needs: Yes (rx glasses) Questionnaire PHQ-9 Over the last 2 weeks, how often have you been bothered by any of the following problems? 1. Little interest or pleasure in doing things: not at all 2. Feeling down, depressed, or hopeless: not at all 3. Trouble falling or staying asleep, or sleeping too much: not at all 4. Feeling tired or having little energy: not at all 5. Poor appetite or overeating: not at all 6. Feeling bad about yourself - or that you are a failure or have let yourself or your family down: not at all 7. Trouble concentrating on things, such as reading the newspaper or watching television: not at all 8. Moving or speaking so slowly that other people could have noticed. Or the opposite - being so fidgety or restless that you have been moving around a lot more than usual: not at all 9. Thoughts that you would be better off or of hurting yourself in some way: not at all Total score: 0 Depression Screening Interpretation: Negative Depression Screening Done: Yes Source: Developed by Drs. Carl Rai, Sharifa Jennings, Gregory Degroot and colleagues, with an educational joanne from [employer]. Thrive Questionnaire Date Thrive assessed: 02/14/25 I am a: Patient Within the past 12 months, did the food you bought not last and you didn't have the money to get more?: Never true Within the past 12 months, did you worry whether your food would run out before you got money to buy more?: Never true Do you have trouble paying for medicines?: No Do you have trouble getting transportation to medical appointments?: No Do you have trouble paying your heating and electricity bill?: No Do you have trouble taking care of your child, family member or friend?: No Do you have trouble with day-to-day activities such as bathing, preparing meals, shopping, managing finances, etc.?: No Are you currently unemployed and looking for a job?: No Are you interested in more education?: No Currently or been in a relationship where the following occur: No concerns reported THRIVE Score: 0 AUDIT C Alcohol Use Questionnaire (AUDIT-C) 1. How often do you have a drink containing alcohol?: Monthly or less 2. How many drinks containing alcohol do you have on a typical day when you are drinking?: 1 or 2 3. How often do you have six or more drinks on one occasion?: Less than monthly Total Score: 2 KATIE-7 AMB Questionnaire KATIE-7 Date KATIE - 7 assessed: 02/14/25 Feeling nervous, anxious, or on edge: 0 = Not at all Not being able to stop or control worryin = Not at all Worrying too much about different things: 0 = Not at all Trouble relaxin = Not at all Being so restless that it is hard to sit still: 0 = Not at all Becoming easily annoyed or irritable: 0 = Not at all Feeling afraid as if something awful might happen: 0 = Not at all Total KATIE-7 score (0-4 normal; 5-9 mild; 10-14 moderate; 15-21 severe): 0 Source: Developed by Drs. Carl Rai, Sharifa Jennings, Gregory Degroot and colleagues, with an educational joanne from [employer]. Physical exam (Primary Care) Vital Signs: Last Vital Signs Temp 97.9 F 02/14/25 09:53 Pulse 80 02/14/25 09:53 BP 124/80 02/14/25 09:53 Pulse Ox 98 02/14/25 09:53 Oxygen Delivery Method Room Air 02/14/25 09:53 Care Plan Goal for BP management: BP in range BMI result Body Mass Index 27.7 Tobacco/Smoking Status: Tobacco use Status Tobacco use date assessed 02/14/25 02/14/25 09:52 Patient Tobacco Use Status Former Tobacco user 02/14/25 09:52 Tobacco use type Cigarette 02/14/25 09:52 e-Cigarette/Vaping Use Former Use 02/14/25 10:01 PHQ-9: PHQ-9 Score PHQ-9: Total score 0 02/14/25 10:01 Depression Screening Interpretation: Negative Thrive Assessment: Date of Thrive Assessment Date Thrive assessed 02/14/25 02/14/25 09:52 Currently or been in a relationship where the following occur: No concerns reported Const General: cooperative and healthy appearing Nutritional Appearance: well nourished Orientation/consciousness: patient oriented x3 Limitations: no limitations HENMT Head: Yes normal to inspection Eyes General: appearance normal, both eyes and all related structures Neck Neck: Yes normal visual inspection Chest Chest palpation & inspection: normal palpation of entire chest wall Resp Effort & Inspection: normal respiratory effort Other: Scrotum : Normal. Penis: Normal, no rash seen. Testicles: NOrmal. no hernia palpable. Neuro General: patient oriented x3 Coding Level of Care Code New Pt Level 4 (84310) Complex EM visit Add On G2211 Diagnoses Hyperlipidemia E78.5 Dysuria R30.0 Aspiration into airway T17.908A Assessment & Plan Assessment & Plan (1) Hyperlipidemia: Code(s): E78.5 - Hyperlipidemia, unspecified Category: Medical Plan: fasting bw has been ordered. Will call with results (2) Dysuria: Code(s): R30.0 - Dysuria Category: Medical Plan: Urinalysis reviewed. Very unlikely symptoms are due to infectious etiology. However chlamydia, gonorrhea and HIV testing ordered. Most likely symptoms are due to local irritation. Blood sugars and an A1c will be checked. (3) Aspiration into airway: Code(s): T17.908A - Unspecified foreign body in respiratory tract, part unspecified c ausing other injury, initial encounter Plan: Chest x-ray and EKG has been ordered. Orders: Orders CT NG by PCR Today José Nj MD E78.5 - Hyperlipidemia, unspecified, Z11.9 - Encounter for screening for infectious and parasitic diseases, unspecified Basic Metabolic Panel Today José Nj MD E78.5 - Hyperlipidemia, unspecified, Z11.9 - Encounter for screening for infectious and parasitic diseases, unspecified Liver Panel Today José Nj MD E78.5 - Hyperlipidemia, unspecified, Z11.9 - Encounter for screening for infectious and parasitic diseases, unspecified XR chest 2V Today José Nj MD R05.9 - Cough, unspecified ECG 12 lead EKG Today José Nj MD R06.02 - Shortness of breath Complete Blood Count no Diff Today José Nj MD E78.5 - Hyperlipidemia, unspecified, Z11.9 - Encounter for screening for infectious and parasitic diseases, unspecified Lipid Panel Today José Nj MD E78.5 - Hyperlipidemia, unspecified, Z11.9 - Encounter for screening for infectious and parasitic diseases, unspec ified Syphilis Screen Today José Nj MD E78.5 - Hyperlipidemia, unspecified, Z11.9 - Encounter for screening for infectious and parasitic diseases, unspecified Prostate Specific Antigen Scr Today José Nj MD E78.5 - Hyperlipidemia, unspecified, Z11.9 - Encounter for screening for infectious and parasitic diseases, unspecified Medications: Discontinued ciprofloxacin HCl Discontinued Reason: Patient no longer taking 500 mg PO BID 14 tabs [facility] Karlene Leigh MA
[2025-02-14 09:53] VITALS: BP 124/80; PULSE 80; TEMP 36.6; O2SAT 98; BMI 27.7
== END 2025-02-14 10:37 | disposition home or self-care (01) ==
LOC: HO.HMCHD 09:41
PROVIDERS: PCP Internal Medicine; Visit Provider Internal Medicine
DX: E78.5 Hyperlipidemia, unspecified (principal); R30.0 Dysuria; T17.908A Unspecified foreign body in respiratory tract, part unspecified causing other injury, initial encounter

== ENCOUNTER → 2025-02-14 09:41 | Outpatient (BNVA) | payer BC, SELFPAY | PROVIDERS: PCP Internal Medicine; Visit Provider Internal Medicine | DX: Z13.89 Encounter for screening for other disorder (principal) ==

== ENCOUNTER 2025-02-15 16:25 | Outpatient (REF) | payer BC, SELFPAY ==
--- NOTE | ~2025-02-15 | XR_ITS ---
EXAMINATION: XR CHEST CLINICAL INFORMATION: R05.9 - Cough, unspecified COMPARISON: 04/01/2021. TECHNIQUE: 2 views of the chest were obtained. FINDINGS: The cardiac, hilar, and mediastinal contours are normal. The lungs are clear bilaterally. There is no pneumothorax or pleural effusion. There is no focal osseous or soft tissue abnormality. XR/XR chest 2V IMPRESSION: No active pulmonary disease. Electronically signed by: Joe Grayson MD 02/16/2025 03:31 PM EDT
[2025-02-15 17:04] LABS: Hematocrit 41.6 % (42.0-52.0); Hemoglobin 14.5 g/dl (14.0-18.0); Mean Corpuscular HGB Conc 34.9 g/dl (31.0-36.0); Mean Corpuscular Hemoglobin 32.1 pg (27.0-33.0); Mean Platelet Volume 10.1 fL (9.4-12.4); Platelet Count 212 X10*3/uL (160-400); Red Blood Count 4.52 X10*6/uL (4.60-5.80); Red Cell Distribution Width 11.8 % (11.0-16.0); White Blood Count 8.2 X10*3/uL (4.8-10.8)
[2025-02-15 17:49] LABS: Prostate Specific Antigen Scr 0.45 ng/mL (<0.05-4.0)
--- OUTSIDE RECORDS SUMMARY | 2025-02-15 18:51 | XMS_ITS ---
Author Organization [facility] Address [address] [place] [address] Care Team Providers Care Fingerer Name Role Phone Braden Sheets MD Primary Care Provider Salvatore Schumacher Jr REASON FOR VISIT pathology Encounters Encounter Location Date Provider Diagnosis [facility] [address] [place] [address] 08/25/2024 Salvatore Shankar Jr Plan Of Treatment No Information Progress Notes * DORENE COBIANWDOB: [birth year] (53 yo M)Acc No.[id number]:08/25/2024 Patient:?JERRI COBIAN :1970???Age:53 Y???Sex:Male Address:[address] [place] [address], [place], [address] * true * Date:? Generated for Printi eduard/Branden/eTransmitting on:?02/15/2025 06:51 PM EDT
--- OUTSIDE RECORDS SUMMARY | 2025-02-15 18:51 | XMS_ITS ---
Author Organization [facility] Address [address] [place] [address] Care Team Providers Care Geospatial Program Management Officer Name Role Phone Braden Sheets MD Primary Care Provider UnavailSalvatore العراقي Jr REASON FOR VISIT screening Encounters Encounter Location Date Provider Diagnosis [facility] Outpatient [address] [place], [place] [phone] 08/17/2024 Salvatore Shankar Jr Colon cancer screening Z12.11 and Colon polyps K63.5 Assessments Encounter Date Diagnosis (ICD Code) Assessment Notes Treatment Notes Treatment Clinical Notes Section Notes 08/17/2024 Colon cancer screening (ICD-10 - Z12.11) 08/17/2024 Colon polyps (ICD-10 - K63.5) Plan Of Treatment No Information Progress Notes * DORENE COBIANWDOB: [birth year] (54 yo M)Acc No.[id number]:08/17/2024 COLON WITH MAC Patient:?JERRI COBIAN Provider:?Salvatore Shankar MD :1970???Age:53 Y???Sex:Male Kranthi e:08/17/2024 Address:[address] [place] [address], [place], [place] Pcp:Braden Sheets MD Subjective: * Chief Complaints: * ???1. Screening. * Medical History:? Objective: * Vitals:? Assessment: * Assessment: 1.?Colon cancer screening - Z12.11 (Primary)???2.?Colon polyps - K63.5??? Plan: * Treatment: * Procedure Codes:?51994 LESIO N REMOVAL COLONOSCOPY * * The named appointment provid er may or may not be the originator of this progress note, and it is not deemed complete until electronically signed by the appointment provider. Sign off status: Pending * Provider:?Salvatore Shankar MD Date:?1 Generated for Zacarias chapa/Branden/Roxiitting on:?02/15/2025 06:51 PM EDT
--- OUTSIDE RECORDS SUMMARY | 2025-02-15 18:51 | XMS_ITS | Patient Health Record ---
Author Organization [facility] Address [address] [place] [address] Care Team Providers Care Garnisher Name Role Phone Braden Sheets MD Primary Care Provider Salvatore Schumacher Jr Unavailable Allergies Allergen (clinical drug ingredient) Drug/Non Drug Allergy documented on EMR Reaction Allergy Type Onset Date Status hayfever (uncoded) Unknown Allergy A ctive Pollen pollen (uncoded) Unknown Allergy Act pato grass (uncoded) Unknown Allergy Acti ve Results Component Value Reference Range Notes Pathology Reviewed date:08/25/2024 07:59:05 AM Interpretation: Performing Lab:[facility], [address] [place] [phone] Notes/Report: Name: Jerri Alan Age/Sex: 53/M : 1970 Unit#: [id number] Attend Dr: Salvatore Shankar MD Re08/17/24 Status : [facility] Location: [facility] Disch: SPEC : [id number] RECD : 08/17/24 STATUS: SONIYA LUGO NUM: [id number] JESENIA: 08/17/[address]: Salvatore Shankar MD [...] A. CEDS Copies To: Salvatore Shankar MD [facility] [address] [place] [address] [address] [place], [place] [phone] Braden Sheets MD [facility] [address] [place] [address] Signed (si gnature on file) Ricky Irwin [...] Problem Status W/U Status Risk Notes Problem 159815669 Colon cancer screening (Z12.11) Active confirmed Problem 584278693 Irritable bowel syndrome with diarrhea (K58.0) Active confirmed Problem 103317556 Long-term use of aspirin therapy (Z79.82) Active confirmed Vital Signs Blood pressure diastolic 00 mm Hg 07/29/2024 Height 68.75 in 07/29/2024 Blood pressure systolic 00 mm Hg 07/29/2024 Weight 179 lbs 07/29/2024 BMI 26.62 kg/m2 07/29/2024 Encounters Encounter Location Date Provider Diagnosis [facility] Outpatient [address] [place], [place] [phone] 08/17/2024 Salvatore Shankar Jr Colon cancer screening Z12.11 and Colon polyps K63.5 [facility] [address] [facility] [address] [place] [address] 07/29/2024 Salvatore Shankar Jr Colon cancer screening Z12.11 ; Irritable bowel syndrome with diarrhea K58.0 and Long-term use of aspirin therapy Z79.82 [facility] [address] [place] [address] 08/10/2024 Salvatore Shankar Jr [facility] [address] [place] [address] 08/25/2024 Salvatore Shankar Jr Assessments Encounter Date [...] Insured Coverage Start Date Coverage End Date [facility] [address] [place], [place] [id number] JERRI ALAN Self - patient is the insured Medical (General) History Medical History History ICD Code Environmental allergies Hyperlipidemia Gout Cardiac catheterization, negative for si gnificant CAD Surgical History Surgery Date(Month/Year)
--- OUTSIDE RECORDS SUMMARY | 2025-02-15 18:52 | XMS_ITS ---
Author Organization [facility] Address [address] [place] [address] Care Team Providers Care Impression Printer Name Role Phone Braden Sheets MD Primary Care Provider Amanda Shankar Jr, Salvatore Gustafson REASON FOR VISIT please lock 07-29-24 office note Encounters Encounter Location Date Provider Diagnosis [facility] [address] [place] [address] 08/10/2024 Salvatore Shankar Jr Plan Of Treatment No Information Progress Notes * DORENE COBIANWDOB: [birth year] (53 yo M)Acc No.[id number]:08/10/2024 Patient:?JERRI COBIAN :1970???Age:53 Y???Sex:Male Address:[address] [place] [address], [place], [address] * true * Date:? Generated for Zacarias chapa/Branden/eTransmitting on:?02/15/2025 06:51 PM EDT
[2025-02-15 20:02] LABS: Alanine Aminotransferase 30 U/L (0-40); Albumin Level 4.4 g/dL (3.5-5.0); Anion Gap 12 (12-20); Aspartate Amino Transferase 36 U/L (5-37); Bilirubin Direct 0.2 mg/dL (0.0-0.5); Bilirubin Total 0.9 mg/dL (0.0-1.0); Blood Urea Nitrogen 12 mg/dL (9-16); Calcium 9.3 mg/dL (8.4-10.2); Carbon Dioxide 25 mmol/L (22-29); Chloride 104 mmol/L (96-108); Cholesterol 178 mg/dL (<200); Estimated Glomerular Filt Rate > 60; Glucose Random 83 mg/dL (60-115); HDL Cholesterol 53 mg/dL (>40); LDL Cholesterol Calculated 87 mg/dL (<100); Potassium 4.2 mmol/L (3.3-5.1); Sodium 137 mmol/L (135-145); Total Protein 7.3 g/dL (6.5-8.0); Triglycerides 191 mg/dL (<150)
[2025-02-15 20:18] LABS: Alkaline Phosphatase 50 U/L (39-117)
[2025-02-16 08:48] LABS: Syphilis Screen Nonreactive (Nonreactive)
[2025-02-16 10:32] LABS: CT PCR NOT DETECTED (Not Detect.); NG PCR NOT DETECTED (Not Detect.)
== END 2025-02-15 16:26 | disposition home or self-care (01) ==
LOC: HO.XRAY 16:25
PROVIDERS: PCP Internal Medicine; Visit Provider Internal Medicine
DX: E78.5 Hyperlipidemia, unspecified (principal); Z11.9 Encounter for screening for infectious and parasitic diseases, unspecified; R05.9 Cough, unspecified; Z12.5 Encounter for screening for malignant neoplasm of prostate
CPT/HCPCS: 71046; 80048; 80061; 80076; 84153; 85027; 86780; 87491; 87591

== ENCOUNTER → 2025-02-15 16:39 | Outpatient (BNV) | payer BC, SELFPAY | PROVIDERS: PCP Internal Medicine; Visit Provider Radiology Diagnostic Radiology | DX: R05.9 Cough, unspecified (principal) | CPT/HCPCS: 71046 ==

== ENCOUNTER → 2025-02-17 07:12 | Outpatient (REF) | payer BC, SELFPAY ==
--- NOTE | 2025-02-17 07:39 | ECG_ITS ---
Test Reason : SOB Blood Pressure : */* mmHG Vent. Rate : 67 BPM Atrial Rate : 67 BPM P-R Int : 210 ms QRS Dur : 112 ms QT Int : 372 ms P-R-T Axes : 56 74 58 degrees QTcB Int : 393 ms Sinus rhythm with 1st degree A-V block Otherwise normal ECG When compared with ECG of 01-Sep-2007 01:37, Increase in ventricular rate Referred By: José Nj Electronically Signed By: MOE HERNANDEZ
== END ==
LOC: HO.CARD 07:12
PROVIDERS: PCP Internal Medicine; Visit Provider Internal Medicine
DX: R06.02 Shortness of breath (principal)
CPT/HCPCS: 93005

== ENCOUNTER → 2025-02-17 07:39 | Outpatient (BNV) | payer BC, SELFPAY | PROVIDERS: PCP Internal Medicine; Visit Provider Internal Medicine | DX: I44.0 Atrioventricular block, first degree (principal) | CPT/HCPCS: 93010 ==

== ENCOUNTER 2025-08-02 14:54 | Outpatient (AMB) | payer BC, SELFPAY ==
--- NOTE | 2025-08-02 14:56 | A.OFFVIS_ITS ---
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 He said he can do his activity of daily living and occupation without symptoms but when he pushes himself he does get short of breath. The symptoms happening over the last few months have been getting worse. He is referred here for further evaluation as in 2006 he had undergone a stress test which was abnormal and was performed for chest pain symptoms at that time. At that time he was a heavy smoker. Cardiac catheterization at that time had revealed 100% chronic total occlusion of the right coronary artery with collaterals from the LAD. He had a impression that there was no significant issues or could not be fixed. However I did discuss with him with findings of cardiac catheterization from back then. Since then he has been on aspirin and statin therapy. He has strong family history of coronary artery disease both father and mother having coronary artery bypass grafting done in the 60s. He has now stopped smoking about 5 years ago. He takes all his medications religiously. Last LDL was 87 mg/dL. He denies any exertional chest pain. He does complain of occasional skipped heartbeats or palpitation mostly at nighttime. He denies any symptoms of palpitation with exertional activity. Denies any lightheadedness, syncope. No symptoms of claudication. No orthopnea, PND, leg edema. [facility] Medical History CAD (coronary artery disease) Hyperlipidemia Dental root implant present Eczema Gout Surgical History History of colonoscopy (~08/17/24) Hx of cardiac catheterization Family History Mother No problems noted. Father No problems noted. Social History Housing: House Patient Tobacco Use Status: Former Tobacco user Tobacco use type: Cigarette e-Cigarette/Vaping Use: Former Use service: No Current occupational status: employed Cognitive needs: No Hearing needs: No Vision needs: Yes (rx glasses) Review of Systems Const Denies chills, Denies daytime sleepiness, Denies fatigue, Denies fever(s), Denies frequent falls, Denies poor appetite, Denies snoring, Denies stops breathing during sleep, Denies weakness, Denies weight gain and Denies weight loss Eyes Denies loss of vision ENT Denies dizziness and Denies hearing loss Card Denies chest pain, Denies claudication, Denies leg edema, Denies li ghtheadedness, Denies palpitations, Denies dyspnea, Denies dyspnea on exertion and Denies orthopnea Resp Denies cough, Denies excessive phlegm production, Denies dyspnea, Denies dyspnea on exertion, Denies snoring and Denies wheezing GI Denies abdominal pain, Denies hematochezia, Denies change in bowel habits, Denies nausea and Denies vomiting Denies dysuria and Denies urinary frequency Musc Denies arthralgias, Denies muscle weakness and Denies numbness Skin/Breast Denies nail changes and Denies rash Neuro Denies Abnormal speech present, Denies dizziness, Denies frequent falls, Denies loss of vision, Denies memory loss, Denies numbness and Denies weakness Psych Denies depression and Denies memory loss Endo Denies fatigue and Denies palpitations Henry/Lymph Reports easy bruising and Reports other (anemia) Aller/Immun Denies wheezing Physical Exam Vital Signs: Last Vital Signs Pulse 94 08/02/25 14:57 BP 120/84 08/02/25 14:57 BMI result Body Mass Index 26.9 Const General: cooperative, comfortable, no acute distress, alert, awake and Physically active Nutritional Appearance: average body habitus Orientation/consciousness: patient oriented x3 Limitations: no limitations HEENT Head: Yes normocephalic and Yes atraumatic Neck Neck: Yes trachea midline, Yes supple and Yes no JVD Carotids: no bruits Resp Effort & Inspection: normal respiratory effort Auscultation: clear to auscultation bilaterally Cardio Jugular venous distension: no JVD Rate: regular rate Rhythm: regular rhythm Heart sounds: S1 normal heart sound present, S2 normal heart sound present, no click, no gallops, no murmurs and no rubs GI Auscultation: normal bowel sounds Skin General skin exam: no rashes or lesions noted Neuro General: patient oriented x3 and no focal motor deficits Speech: No Abnormal speech present Extrem General: Yes no clubbing, cyanosis or edema Psych Appearance: grossly normal Office Procedures EKG Details: EKG shows normal sinus rhythm with normal EKG 83951-[id number], Complete Assessment & Plan Assessment & Plan (1) CAD (coronary artery disease): Comment: 100% chronic total occlusion of RCA by cardiac catheterization in 2006 with collaterals to do this RCA from LAD Code(s): I25.10 - Atherosclerotic heart disease of in[place] coronary artery without angina pectoris Category: Medical Plan: Patient was recently increasing exertional shortness of breath with multiple risk factors with known prior coronary artery disease with chronic total occlusion of RCA. He was not very aware of this finding. He did have natural collaterals at that time and no interventions were performed except for medical therapy. He has been on medical therapy with aspirin and atorvastatin at high- intensity although his last LDL is not well optimized at 87 mg/dL. We discussed pathophysiology of atherosclerosis and given that he is not progressive symptoms exertional shortness of breath need to rule out progressive coronary artery disease and significant myocardial ischemia that may impact prognosis and may need further treatment options. This was discussed with him. I would suggest therefore to undergo exercise myocardial perfusion imaging to further assess for significant myocardial ischemia as well as exercise capacity and then further guide treatment. Also suggest echocardiogram to evaluate for LV systolic function as well as valvular function and to evaluate for wall motion abnormality. Meanwhile he is advised to continue aspirin therapy. I have advised him to increase his atorvastatin to 80 mg daily and follow-up lipid panel in 2 months time and further guide lipid therapy based on the response. Smoking cessation was applauded. Advised to maintain activity level but avoid sudden strenuous exertion. Follow up in the clinic in 2 months time, sooner PRN. Thank you for allowing me to partake in his care Orders: Orders CA stress test Today I25.10 - Atherosclerotic heart disease of inup[place] coronary artery without angina pectoris NM cardiolite stress test 2 Weeks I25.10 - Atherosclerotic heart disease of inup[place] coronary artery without angina pectoris, R07.9 - Chest pain, unspecified Lipid Panel 2 Months I25.10 - Atherosclerotic heart disease of inup[place] coronary artery without angina pectoris CA echo transthoracic complete Today I25.10 - Atherosclerotic heart disease of inup[place] coronary artery without angina pectoris Medications: New atorvastatin (Lipitor) 80 mg PO DAILY 30 tabs 3RF Discontinued atorvastatin Discontinued Reason: Doctor's Order 40 mg PO BEDTIME 90 tabs 1RF Coding Level of Care Code New Pt Level 4 (39169) Complex EM visit Add On G2211 Diagnoses CAD (coronary artery disease) I25.10 CPT Codes EKG - CPT: 25707-[id number], Complete ([id number])
[2025-08-02 14:57] VITALS: BP 120/84; PULSE 94; BMI 26.9
--- OUTSIDE RECORDS SUMMARY | 2025-08-02 18:13 | XMS_ITS | Clinical Summary ---
Author Organization [facility] Address [address] [place] [address] Phone Care Team Providers Care Audio Visual Arts Director Name Role Phone Braden Sheets MD Primary Care Provider Allergies No known active allergies Medications No known medications Social History Tobacco Use Types Packs/Day Years Used Date Smoking Tobacco: Some Days Smokeless Tobacco: Never Alcohol Use Standard Drinks/Week Comments Not Currently 0 (1 standard drink = 0.6 oz pur e alcohol) Education Answer Date Recorded Are you interested in more education? Not on shelbi e 02/21/2023 Are you concerned about learning? Not on file 02/21/2023 No 02/21/2023 No 02/21/2023 Digital Access Answer Date Recorded No 03/22/2023 No 03/22/2023 No 03/22/2023 Reliable internet access at home? Not on file 03/22/2023 Device with a working camera? Not on file Sex and Gender Information Value Date Recorded Sex Assigned at Male 11/23/2019 1:36 PM EST Legal Sex Male 12:28 PM EST Gender Identity Male 11/23/2019 1:36 PM EST Sexual Orientation Not on file Last Filed Vital Signs Vital Sign Reading Time Taken Comments Blood Pressure 115/77 11/23/2019 1:32 PM EST Pulse 78 11/23/2019 1:32 PM EST Temperature 37 C (98.6 F) 11/23/2019 1:32 PM EST Respiratory Rate 16 11/23/2019 1:32 PM EST Oxygen Saturation 98% 11/23/2019 1:32 PM EST Inhaled Oxygen Concentration - - Weight 80.7 kg (178 lb) 11/23/2019 1:32 PM EST Height 175.3 cm (5' 9 ) 11/23/2019 1:32 PM EST Body Mass Index 26.29 11/23/2019 1:32 PM EST Plan of Treatment Health Maintenance Due Date Last Done Comments Adult Td,Tdap Booster 1970 LIPID PANEL 1969 DEPRESSION SCREENING 1981 SMOKING Hx and SMOKELESS TOBACCO SCREENING 1982 HEPATITIS C SCREENING 1987 HIV ONE-TIME SCREENING (18-6 5 YEARS) 1987 PNEUMOCOCCAL VACCINES (50+ years) (1 of 2 - PCV) 1988 COLOGUARD 2014 COLONOSCOPY 2014 COLORECTAL CANCER SCREENING 2014 FIT TEST 2014 FOBT 2014 SIGMOIDOSCOPY 2014 VIRTUAL COLONOSCOPY 2014 ZOSTER VACCINES (1 of 2) 2019 INFLUENZA VACCINE (#1) 2025 0, 12/21/2019 COVID-19 VACCINE (1 - 2023-2 5 season) 2025 HEPATITIS A VACCINES Aged Out No long er eligible based on patient's age to complete this topic HIB VACCINES Aged Out No longer eligi ble based on patient's age to complete this topic MENINGOCOCCAL VACCINES (ACWY) Aged Out No longer eligible based on patient's age to complete this topic MENINGOCOCCAL VACCINES (B) Aged Out N o longer eligible based on patient's age to complete this topic Medical Devices Not on file Insurance [facility] FEDERAL [facility] [employer] [facility] [address] [place] [id number] [facility] FEDERAL Care Teams Audio Visual Arts Director Relationship Specialty Start Date End Date Braden Sheets MD [address] [place] [address] [place] [address] PCP - General Internal Medicine 11/23/19 Additional Source Comments The information contained in this document represents components of the legal health record. It is not the complete legal health record.[facility]
== END 2025-08-02 15:48 | disposition home or self-care (01) ==
LOC: HO.HCS 14:54
PROVIDERS: PCP Internal Medicine; Visit Provider Internal Medicine Cardiovascular Disease
DX: I25.10 Atherosclerotic heart disease of native coronary artery without angina pectoris (principal)
CPT/HCPCS: 93010; 99204

== ENCOUNTER → 2025-08-02 14:54 | Outpatient (BNVA) | payer BC, SELFPAY | PROVIDERS: PCP Internal Medicine; Visit Provider Internal Medicine Cardiovascular Disease | DX: I25.10 Atherosclerotic heart disease of native coronary artery without angina pectoris (principal) | CPT/HCPCS: 93005 ==

== ENCOUNTER 2025-08-04 06:56 | Outpatient (REF) | payer BC, SELFPAY ==
[2025-08-04 08:04] LABS: Cholesterol 180 mg/dL (<200); HDL Cholesterol 48 mg/dL (>40); Triglycerides 108 mg/dL (<150)
== END 2025-08-04 06:57 | disposition home or self-care (01) ==
LOC: HO.LAB 06:56
PROVIDERS: PCP Internal Medicine; Visit Provider Internal Medicine Cardiovascular Disease
DX: I25.10 Atherosclerotic heart disease of native coronary artery without angina pectoris (principal)
CPT/HCPCS: 36415; 80061

== ENCOUNTER → 2025-09-07 14:58 | Outpatient (REF) | payer BC, SELFPAY ==
--- OUTSIDE RECORDS SUMMARY | 2024-08-17 05:50 | XMS_ITS ---
Author Organization [facility] Address [address] [place] [address] Care Team Providers Care Barrer And Tacker Name Role Phone Kortney (RETIRED) Braden RAMIREZ Primary Care Provide r Salvatore Stoddard Jr [phone] REASON FOR VISIT screening Encounters Encounter Location Date Provider Diagnosis [facility] [place] [address] [place] [phone] 08/17/2024 Salvatore Shankar Jr Colon cancer screening Z12.11 and Colon polyps K63.5 Assessments Encounter Date Diagnosis (ICD Code) Assessment Notes Treatment Notes Treatment Clinical Notes Section Notes 08/17/2024 Colon cancer screening (ICD-10 - Z12.11) 08/17/2024 Colon polyps (ICD-10 - K63.5) Plan Of Treatment No Information Progress Notes * DORENE COBIANWDOB: [birth year] (54 yo M)Acc No.[id number]:08/17/2024 COLON WITH MAC Patient: JERRI TOUSSAINT Provider: Patria Shankar MD :1970 A ge:53 Y S ex:Male Date:08/17/2024 Address:[address] [place], [place] [phone] Pcp:Braden Sheets (RETIRED )MD Subjective: * Chief Complaints: * 1 . Screening. * Medical History: Objective: * Vitals: Assessment: * Assessment: 1. C olon cancer screening - Z12.11 (Primary) 2 . C olon polyps - K63.5? Plan: * Treatment: * Procedure Codes: 4 5385 LESION REMOVAL COLONOSCOPY * * The named appointment provid er may or may not be the originator of this progress note, and it is not deemed complete until electronically signed by the appointment provider. Sign off status: Pending * Provider: Patria Shankar MD Date: Generated for Zacarias chapa/Branden/Roxiitting on: 11/07/2024 06:18 PM EST
--- NOTE | 2025-09-07 15:17 | CA_ITS ---
Transthoracic Echocardiogram Patient (Last, First, Middle): James Alan, Gender: Male Date of : 1970 Age: 54 Procedure Date: 09/07/2025 Procedure Type: Transthoracic Echocardiogram Location: OP Height: 175.26 cm Weight: 81.65 kg BSA: 1.98 m2 Heart Rate: bpm BP: 138 / 82 mmHg Staff Radiation Therapist: TUNDE Referring MD: Zuhair Rucker MD Bale Coverer: Zuhair Rucker MD Symptoms: I25.10 - Atherosclerotic heart disease of [place] coronary artery without... Study Quality: Adequate ECG Rhythm: Sinus Conclusions: - 1. Low normal LV ejection fraction 50-55% with underlying regional wall motion abnormality consistent with CAD with grade 1 diastolic dysfunction 2. Normal cardiac valvular Dopplers 3. Normal RV systolic pressure 4. Mildly dilated ascending aorta 3.7 cm 5. No gross pericardial effusion Findings Left Ventricle Normal left ventricular cavity size. There is normal left ventricular wall thickness. The left ventricular systolic function is low normal. The visually estimated ejection fraction is between 50-55%. Spectral Doppler is indicative of an impaired relaxation filling pattern. E/E prime ratio is <8, consistent with normal filling pressures. Evidence suggests grade I (mild) diastolic dysfunction. Wall Motion Rest Echo Findings The mid inferior segment is hypokinetic. The basal inferior and basal inferoseptal segments are akinetic. All other scored wall segments showed normal motion. Right Ventricle Normal right ventricular cavity size and systolic function. Atria The left atrium is likely dilated. There is no evidence of interatrial shunt. The right atrium is normal in size. Aortic Valve Normal aortic valve structure and function. There is no aortic valve stenosis. There is no aortic valve regurgitation. Mitral Valve Likely normal mitral valve structure and function. There is trace mitral valve regurgitation. There is no mitral valve stenosis. Pulmonic Valve The pulmonic valve is likely normal. There is trace pulmonic valve regurgitation. Tricuspid Valve Normal tricuspid valve structure. There is trace tricuspid valve regurgitation. The right ventricular systolic pressure is normal. The right ventricular systolic pressure is 16 mmHg. Normal right atrial pressure. There is no evidence of pulmonary hypertension. Great Vessels The pulmonary artery was not well visualized. There is mild dilatation of the ascending aorta measuring 3.70 cm. Venous The inferior vena cava is normal in size and collapses greater than 50% with inspiration. Pericardium/Pleural There is no evidence of pericardial effusion. Prior Study Comparison No prior study available for comparison. Measurements 2D Linear Measurements IVSd: 1.14 0.6-0.9/0.6-1.0 cm LVIDd: 4.53 3.9-5.3/4.2-5.9 cm LVIDd Index: 2.29 2.4-3.2/2.2-3.1 cm/m2 LVIDs: 3.11 2.0-3.6 cm LVPWd: 0.89 0.7-1.1 cm LA Diam: 3.90 2.7-3.8/3.0-4.0 cm LAIDs Index: 1.97 1.5-2.3 cm/m2 LV Mass: 217.24 67-162/88-224 g LV Mass Index: 109.72 43-95/49-115 g/m2 LVOT Diam: 2.30 3.0+(-)1.3 cm 2D Systolic Function EF 4C: 55.40 >55% EF 2C: 50.10 >55% EF BiP: 51.50 >55% Mitral Valve MV Pk E: 0.69 MV PK A: 0.72 MV Decel Time: 184.00 E/A: 1.00 E'Lateral: 8.27 E'Medial: 8.27 E/E' Med: 8.40 E/E' Lat: 8.40 PHT: 54.00 MVA PHT: 4.07 Decel Hidalgo: 3.77 Aortic Valve AoV Pk Juan: 1.08 AoV Mn Juan: 0.83 AoV VTI: 0.20 AoV Pk Grad: 5.00 Aov Mn Grad: 3.00 KRISTIAN Cont.VTI: 3.98 LVOT LVOT Pk Juan: 0.96 LVOT Mn Juan: 0.68 LVOT VTI: 0.19 LVOT Pk Grad: 4.00 LVOT Mn Grad: 2.00 LVOT Diam: 2.30 LVOT Area: 4.15 Diastolic Function MV Pk E: 0.69 MV Pk A: 0.72 E/A: 1.00 E'Medial: 8.27 E/E' Med: 8.40 E' Laterial: 8.27 E/E' Lat: 8.40 Right Ventricle TAPSE (mm): 21.20 TVS' Juan: 11.40 Tricuspid Valve TR Pk Juan: 1.81 TR Pk Grad: 13.00 RA Press: 3.00 RVSP: 16.00 Great Vessels Aorta Sinus of Valsalva: 3.65 2.0-3.5 cm Ao Asc: 3.70 2.1-3.4 cm Ao Arch: 3.20 Updated in Other Vendor System with Status of Final Zuhair Rucker MD electronically signed on 09/08/2025 4:54:27 PM with status of Final
--- OUTSIDE RECORDS SUMMARY | 2025-09-07 18:19 | XMS_ITS | Patient Health Record ---
Author Organization [facility] Address [address] [place] [address] Care Team Providers Care Juke Box Mechanic Name Role Phone Kortney (RETIRED) Braden RAMIREZ Primary Care Provide r Salvatore Stoddard Jr Unavailable Allergies Allergen (clinical drug ingredient) Drug/Non Drug Allergy documented on EMR Reaction Allergy Type Onset Date Status hayfever (uncoded) Unknown Allergy A ctive Pollen pollen (uncoded) Unknown Allergy Act pato grass (uncoded) Unknown Allergy Acti ve Reason For Referral No Information Medications Medication SIG (Take, Route, Frequency, Duration) Notes Start Date End Date Status Mayte Not-Taking Allopurinol 100 MG TAKE 1 TABLET BY JOLLY TH DAILY Oral; Duration: 90 Active Atorvastatin Calcium 40 MG Oral; Duration: 90 Active Viagra 100 MG take 1 tablet by jolly th once daily if needed Oral; Duration: 3 Not-Taking Metamucil Active Probiotic Active Centrum [...] Problem Status W/U Status Risk Notes Problem Colon cancer screening (038943976) Colon cancer screening (Z12.11) Active confirmed Problem Irritable bowel syndrome with diarrhea (538570717) Irritable bowel syndrome with diarrhea (K58.0) Active confirmed Problem Long-term current use of antiplatelet drug (444314293531263) Long-term use of aspirin therapy (Z79.82) Active confirmed Plan Of Treatment Future Test Test Name Order Date COLONOSCOPY 02/23/2014 COLONOSCOPY 07/29/2024 Insurance Providers Payer Name Payer Address Payer Phone Subscriber Number Group Number Insured Name Patient Relationship to Insured Coverage Start Date Coverage End Date [facility] [address] [place], [place] [id number] JERRI COBIAN Self - patient is the insured Medical (General) History Medical History History ICD Code Environmental allergies Hyperlipidemia Gout Cardiac catheterization, negative for si gnificant CAD Surgical History Surgery Date(Month/Year)
--- OUTSIDE RECORDS SUMMARY | 2025-09-07 18:19 | XMS_ITS | Clinical Summary ---
Author Organization [facility] Address [address] [place] [address] Phone Care Team Providers Care Police Lieutenant Patrol Name Role Phone Braden Sheets MD Primary [...] 2025 0, 12/21/2019 COVID-19 VACCINE (1 - 2024-2 6 season) 2025 RSV VACCINE (1 - 1-dose 75+ series) 2044 HEPATITIS A VACCINES Aged Out No long [...] topic Medical Devices Not on file Insurance [employer] [address] [place] [address] [facility] [address] [place] [address] [email or web address] [address] [place] [address] [facility]ERAL [employer] [facility] FEDERAL [facility] FEDERAL [employer] [email or web address] [address] [place] [facility] [address] [place] [address] Care Teams Police Lieutenant Patrol Relationship Specialty Start Date End Date Braden Sheets MD [address] [place] [address] [place] [address] PCP - General Internal Medicine 11/23/19 Additional Source Comments The information contained in this document represents components of the legal health record. It is not the complete legal health record.[facility]
== END ==
LOC: HO.CARD 14:58
PROVIDERS: PCP Internal Medicine; Visit Provider Internal Medicine Cardiovascular Disease
DX: I25.10 Atherosclerotic heart disease of native coronary artery without angina pectoris (principal)
CPT/HCPCS: 93306

== ENCOUNTER → 2025-09-07 15:17 | Outpatient (BNV) | payer BC, SELFPAY | PROVIDERS: PCP Internal Medicine; Visit Provider Internal Medicine Cardiovascular Disease | DX: I25.10 Atherosclerotic heart disease of native coronary artery without angina pectoris (principal); I77.810 Thoracic aortic ectasia | CPT/HCPCS: 93306 ==

== ENCOUNTER → 2025-09-14 07:45 | Outpatient (REF) | payer BC, SELFPAY ==
--- OUTSIDE RECORDS SUMMARY | 2024-08-17 05:50 | XMS_ITS ---
Author Organization [facility] Address [address] [place] [address] Care Team Providers Care Lightout Examiner Name Role Phone Kortney (RETIRED) Braden RAMIREZ Primary Care Provide r Salvatore Stoddard Jr [phone] REASON FOR VISIT screening Encounters Encounter Location Date Provider Diagnosis [facility] [place] Outpatient [address] [place] [phone] 08/17/2024 Salvatore Shankar Jr Colon cancer screening Z12.11 and Colon polyps K63.5 Assessments Encounter Date Diagnosis (ICD Code) Assessment Notes Treatment Notes Treatment Clinical Notes Section Notes 08/17/2024 Colon cancer screening (ICD-10 - Z12.11) 08/17/2024 Colon polyps (ICD-10 - K63.5) Plan Of Treatment No Information Progress Notes * DORENE COBIANWDOB: [birth year] (55 yo M)Acc No.[id number]:08/17/2024 COLON WITH MAC Patient: JERRI TOUSSAINT Provider: Patria Shankar MD :1970 A ge:53 Y S ex:Male Date:08/17/2024 Address:[address] [place], [place] [phone] Pcp:Braden Sheets (RETIRED )MD Subjective: * Chief Complaints: * S creening Assessment: * Assessment: 1. C olon cancer screening - Z12.11 (Primary) 2 . C olon polyps - K63.5? Plan: * Procedure Codes: 4 5385 LESION REMOVAL COLONOSCOPY Billing Information: * Procedure Codes: 89606 LESION REMOVAL COLONOSCOPY. * The named appointment provid er may or may not be the originator of this progress note, and it is not deemed complete until electronically signed by the appointment provider. Sign off status: Pending * Provider: Patria Shankar MD Date: Generated for Zacarias chapa/Branden/Roxiitting on: 11/14/2024 03:15 PM EST
--- NOTE | ~2025-09-14 | NM_ITS ---
EXERCISE MYOCARDIAL PERFUSION STUDY INDICATION: Shortness of breath TECHNIQUE: The patient was brought in for an exercise perfusion study on 09/14/2025. Patient performed exercise as per Volodymyr protocol and was injected 25 mCi of sestamibi once target heart rate was achieved. Images were obtained using the SPECT gamma camera interlaced with the gating device. Images were obtained in supine position. Resting perfusion study was performed on 09/15/2025. Patient was administered 25 mCi of sestamibi intravenously at rest. Images were then obtained in supine position. Total DLP 85 mGy-cm. Images were processed with the software and compared side to side in short axis, horizontal long axis and vertical long axis views. FINDINGS: Raw aquisition reviewed. The stress perfusion study showed no significant perfusion abnormality. Both uncorrected as well as CT attenuation corrected images were reviewed. The gated study shows normal LV systolic function with calculated LVEF of 67%. LV cavity is normal in size. The gated study shows normal wall thickening and contraction of segments. Resting study shows no significant perfusion abnormality. Gating not performed during rest. The findings are consistent with no clear reversible or fixed perfusion abnormality. NM/NM pily perf SPECT rest & str IMPRESSION: 1. Myocardial perfusion imaging study shows probably normal myocardial perfusion. 2. Gated LVEF is 67% during stress. Gating not performed during rest. EKG component of the test reported separately. Electronically signed by: Geoffrey Berman MD 09/15/2025 02:23 PM AUGUSTINE
--- NOTE | 2025-09-14 07:48 | CA_ITS ---
Acquisition Time: 2025-09-14 08:03:07 Total Exercise Time: 00:07:15 Test Indications: SOB Medications: SEE H&P Protocol: PATSY Max HR: 148 BPM 90% of Pred: 164 BPM Max BP: 174/90 mmHG Max Work Load: 8.9 METS Exercise stress test with exercise 7 mins 15 secs if Patsy Protocol, achieving 90% MPHR, with reports of SOB and midl dizziness, no chest pain, with isolated PVCs, with normotensive response to exercise. Without any EKG changes meeting criteria for ischemia. In recovery, breathing improved and dizziness resolved. Nuclear images pending. Test reviewed with Dr. Berman. Referred By: Zuhair Rucker Electronically Signed By: Rolando Weathers
--- OUTSIDE RECORDS SUMMARY | 2025-09-14 15:15 | XMS_ITS | Patient Health Record ---
Author Organization [facility] Address [address] [place] [address] Care Team Providers Care Tool Setter Apprentice Name Role Phone Kortney (RETIRED) Braden RAMIREZ Primary Care Provide r Salvatore Stoddard Jr Unavailable Allergies Allergen (clinical drug ingredient) Drug/Non Drug Allergy documented on EMR Reaction Allergy Type Onset Date Status grass (uncoded) Unknown Allergy Acti ve hayfever (uncoded) Unknown Allergy A ctive Pollen pollen (uncoded) Unknown Allergy Act pato Reason For Referral No Information Medications Medication SIG (Take, Route, Frequency, Duration) Notes Start Date End Date Status Mayte Not-Taking /PRN Allopurinol 100 MG Tablet TAKE 1 TABLET BY MOUTH DAILY Oral; Duration: 90 Active Atorvastatin Calcium 40 MG Tablet Oral; Duration: 90 Active Viagra 100 MG Tablet take 1 tablet by mouth once daily if needed Oral; Duration: 3 Not-Taking/PRN Metamucil Active Probiotic Active Centrum Adult 50+ MultiGummies - Tablet Chewable as directed Orally Active Aspir-81 81 MG Tablet Delayed Release 1 tablet Orally Once a day Active Social History Tobacco Use: Social History Observation Description Date Details (start date - stop date) Former Smoker NA - NA Social History Drugs/Alcohol: Social Info Question Answer Notes Alcohol Screen Did you have a drink containing alcohol in the past year? Yes How often did you have a drink containing alcohol in the past year? 4 or more times a week (4 points) How many drinks did you have on a typical day when you were drinking in the past year? 3 or 4 drinks (1 point) How often did you have 6 or more drinks on one occasion in the past year? Never (0 point) Points 5 Interpretation Positive Tobacco Use: Social Info Question Answer Notes Tobacco Use/Smoking Patient is a former smoker How long has it been since you last smoked? 1-5 years Additional Details Category Social Info Options Details Miscellaneous: Marital status: engaged Occupation: [employer] Notes: 2019 quit smoking Problems Problem Type SNOMED Code ICD Code Onset Dates Problem Status W/U Status Risk Notes Problem Colon cancer screening (153874461) Colon cancer screening (Z12.11) Active confirmed Problem Irritable bowel syndrome with diarrhea (765944051) Irritable bowel syndrome with diarrhea (K58.0) Active confirmed Problem Long-term current use of antiplatelet drug (163845634010708) Long-term use of aspirin therapy (Z79.82) Active confirmed Plan Of Treatment Future Test Test Name Order Date COLONOSCOPY 02/23/2014 COLONOSCOPY 07/29/2024 Insurance Providers Payer Name Payer Address Payer Phone Subscriber Number Group Number Insured Name Patient Relationship to Insured Coverage Start Date Coverage End Date [facility] [address] [place], [place] [id number] JERRI COBIAN Self - patient is the insured Medical (General) History Medical History History ICD Code Environmental allergies Hyperlipidemia Gout Cardiac catheterization, negative for si gnificant CAD Surgical History Surgery Date(Month/Year)
--- OUTSIDE RECORDS SUMMARY | 2025-09-14 15:16 | XMS_ITS | Clinical Summary ---
Author Organization [facility] Address [address] [place] [address] Phone Care Team Providers Care Stove Tender Name Role Phone Braden Sheest MD Primary Care Provider Allergies No known [...] on patient's age to complete this topic IPV VACCINES Aged Out No longer eligi ble based on patient's age to complete this topic MENINGOCOCCAL VACCINES (ACWY) Aged Out No longer eligible based on patient's age to complete this topic MENINGOCOCCAL VACCINES (B) Aged Out N o longer eligible based on patient's age to complete this topic Medical Devices Not on file Insurance [facility] FEDERAL [employer] [address] [place] [address] [facility] [address] [place] [address] [employer] & Information [facility] FEDERAL Care Teams Stove Tender Relationship Specialty Start Date End Date Braden Sheets MD [address] [place] [address] Dr [place], [place] [address] PCP - General Internal Medicine 11/23/19 Additional Source Comments The information contained in this document represents components of the legal health record. It is not the complete legal health record.[facility]
== END ==
LOC: HO.CARD 07:45
PROVIDERS: PCP Internal Medicine; Visit Provider Internal Medicine Cardiovascular Disease
DX: I25.10 Atherosclerotic heart disease of native coronary artery without angina pectoris (principal); R07.9 Chest pain, unspecified; R06.02 Shortness of breath
CPT/HCPCS: 78452; 93017; A9500

== ENCOUNTER → 2025-09-14 07:48 | Outpatient (BNV) | payer BC, SELFPAY | PROVIDERS: PCP Internal Medicine | DX: R06.02 Shortness of breath (principal) | CPT/HCPCS: 78452; 93016; 93018 ==

== ENCOUNTER 2025-10-13 15:30 | Outpatient (AMB) | payer BC, SELFPAY ==
--- OUTSIDE RECORDS SUMMARY | 2024-08-17 05:50 | XMS_ITS ---
Author Organization [facility] Address [address] [place] [address] Care Team Providers Care Highway Maintenance Supervisor Name Role Phone Kortney (RETIRED) Braden RAMIREZ Primary Care Provide r Salvatore Stoddard Jr REASON FOR VISIT screening Encounters Encounter Location Date Provider Diagnosis [facility] [place] Out[place] [address] [place] [phone] 08/17/2024 Salvatore Shankar Jr Colon cancer screening Z12.11 and Colon polyps K63.5 Assessments Encounter Date Diagnosis (ICD Code) Assessment Notes Treatment Notes Treatment Clinical Notes Section Notes 08/17/2024 Colon cancer screening (ICD-10 - Z12.11) 08/17/2024 Colon polyps (ICD-10 - K63.5) Plan Of Treatment No Information Progress Notes * DORENE COBIANWDOB: 9 (55 yo M)Acc No.[id number]:08/17/2024 COLON WITH MAC Patient: JERRI TOUSSAINT Provider: Patria Shankar MD :1970 A ge:53 Y S ex:Male Date:08/17/2024 Address:[address] [place], [place] [phone] Pcp:Braden Sheets (RETIRED )MD Subjective: * Chief Complaints: * S creening Assessment: * Assessment: 1. C olon cancer screening - Z12.11 (Primary) 2 . C olon polyps - K63.5? Plan: * Procedure Codes: 4 5385 LESION REMOVAL COLONOSCOPY Billing Information: * Procedure Codes: 52625 LESION REMOVAL COLONOSCOPY. * The named appointment provid er may or may not be the originator of this progress note, and it is not deemed complete until electronically signed by the appointment provider. Sign off status: Pending * Provider: Patria Shankar MD Date: 1 Generated for Zacarias chapa/Branden/Roxiitting on: 12/14/2024 07:26 PM EST
--- NOTE | 2025-10-13 15:31 | MHC.OFFVIS ---
Vital Signs 10/13/25 15:32 Height 5 ft 7 in Weight 178 lb 9.191 oz BMI 28.0 BP 128/70 Blood Pressure Location Lt brachial Position Sitting Pulse 68 Intake Visit Reasons: 2 month after stress Intake Note: 2 month follow-up after stress c/o palpitation at night [employer] Required: No Allergies environmental allergies Allergy (Intermediate, Verified 02/14/25 10:36) hayfever symptoms Medication List - Last Reconciled 10/13/25 by Zuhair Rucker MD allopurinol 100 mg PO DAILY aspirin 81 mg PO DAILY atorvastatin (Lipitor) 80 mg PO DAILY multivitamin 1 tab PO DAILY sildenafil 25 - 50 mg (0.5 - 1 x 50 mg) PO Q OTHER DAY PRN HPI Comments Details: James comes for follow-up. He underwent a stress test visits not show significant ischemia but echocardiogram showed wall motion abnormality in RCA territory which is consistent with chronic total occlusion. Patient has no new symptoms. Continues to have exertional shortness of breath but able to do his job. However today he does say that he has increased symptoms of palpitations. He said this mostly happens at nighttime and he feels like skipped heartbeats or strong heartbeat. He has not significant prolonged irregular heartbeat. No lightheadedness, syncope. [facility] Medical History CAD (coronary artery disease) Hyperlipidemia Dental root implant present Eczema Gout Surgical History History of colonoscopy (~08/17/24) Hx of cardiac catheterization Family History Mother No problems noted. Father No problems noted. Social History Housing: House Patient Tobacco Use Status: Former Tobacco user Tobacco use type: Cigarette e-Cigarette/Vaping Use: Former Use service: No Current occupational status: employed Cognitive needs: No Hearing needs: No Vision needs: Yes (rx glasses) Review of Systems Const Denies chills, Denies fatigue, Denies fever(s), Denies frequent falls, Denies weakness, Denies weight gain and Denies weight loss ENT Denies dizziness Card Denies chest pain, Denies leg edema, Denies lightheadedness, Denies palpitations, Denies dyspnea, Denies dyspnea on exertion, Denies orthopnea and Denies other (loss of consciousness) Resp Denies cough, Denies dyspnea and Denies dyspnea on exertion GI Denies hematochezia and Denies change in stool character Musc Denies abnormal gait, Denies muscle weakness, Denies numbness, Denies radiating pain into limb and Denies tingling Neuro Denies Abnormal speech present, Denies abnormal gait, Denies dizziness, Denies frequent falls, Denies numbness, Denies tingling and Denies weakness Endo Denies fatigue and Denies palpitations Physical Exam Vital Signs: Last Vital Signs Pulse 68 10/13/25 15:32 BP 128/70 10/13/25 15:32 BMI result Body Mass Index 28.0 Const General: cooperative, comfortable, no acute distress, alert, awake, Physically active and anxious Nutritional Appearance: average body habitus Orientation/consciousness: patient oriented x3 Limitations: no limitations Neck Neck: Yes trachea midline, Yes supple and Yes no JVD Carotids: no bruits Resp Effort & Inspection: normal respiratory effort Auscultation: clear to auscultation bilaterally Cardio Jugular venous distension: no JVD Rate: regular rate Rhythm: regular rhythm Heart sounds: S1 normal heart sound present, S2 normal heart sound present, no click, no gallops, no murmurs and no rubs GI Auscultation: normal bowel sounds Skin General skin exam: no rashes or lesions noted Neuro General: patient oriented x3 and no focal motor deficits Speech: No Abnormal speech present Extrem General: Yes no clubbing, cyanosis or edema Psych Appearance: grossly normal Assessment & Plan Assessment & Plan (1) CAD (coronary artery disease): Comment: 100% chronic total occlusion of RCA by cardiac catheterization in 2006 with collaterals to do this RCA from LAD Code(s): I25.10 - Atherosclerotic heart disease of [place] coronary artery without angina pectoris Category: Medical Plan: Patient with CAD with total occlusion of the right coronary artery with wall motion abnormality in that territory with no ischemia in the LAD territory. His shortness of breath does not appear to be cardiac in origin especially given normal LV ejection fraction. He is recommended to continue aggressive medical therapy. He said he took his lipid panel soon enough after increasing atorvastatin therapy. Advised to repeat it since he has been on it for few months now. Target goal LDL less than 60 mg/dL. Continue low-dose aspirin therapy for life. Encouraged to maintain activity level as tolerated. If he gets any new symptoms he is advised to call my office (2) Palpitations: Code(s): R00.2 - Palpitations Category: Medical Plan: Symptoms of palpitation which are suggestive of PVCs. However needs further workup to diagnose as well as assess frequency of PVCs that may guide therapy. Will suggest a 7 day Holter monitor to assess for the same. No current treatment in his offered. Stress mitigation strategies was discussed. Avoidance of stimulants such as alcohol and caffeine was discussed. Will follow up in the clinic in 6 months time, sooner PRN. Thank you for allowing me to partake in his care Orders: Orders CRP High Sensitivity Today E78.5 - Hyperlipidemia, unspecified, I25.10 - Atherosclerotic heart disease of [place] coronary artery without angina pectoris Lipid Panel Today I25.10 - Atherosclerotic heart disease of [place] coronary artery without angina pectoris ECG 7 day holter monitor Today R00.2 - Palpitations Coding Level of Care Code Est Pt Level 4 (14489) Diagnoses CAD (coronary artery disease) I25.10 Palpitations R00.2
[2025-10-13 15:32] VITALS: BP 128/70; PULSE 68; BMI 28.0
--- OUTSIDE RECORDS SUMMARY | 2025-10-13 19:26 | XMS_ITS | Patient Health Record ---
Author Organization [facility] Address [address] [place] [address] Care Team Providers Care Clinical Appeals Auditor Name Role Phone Kortney (RETIRED) Braden RAMIREZ [...] Options Details Miscellaneous: Marital status: engaged Occupation: [employer] Section Notes: 2019 quit smoking Problems Problem Type SNOMED Code ICD Code Onset Dates Problem Status W/U Status Risk Notes Problem Colon cancer screening (919590123) Colon cancer screening (Z12.11) Active confirmed Problem Irritable bowel syndrome with diarrhea (909522974) Irritable bowel syndrome with diarrhea (K58.0) Active confirmed Problem Long-term current use of antiplatelet drug (644476485203973) Long-term use of aspirin therapy (Z79.82) Active confirmed Plan Of Treatment Future Test Test Name Order Date COLONOSCOPY 02/23/2014 COLONOSCOPY 07/29/2024 Insurance Providers Payer Name Payer Address Payer Phone Subscriber Number Group Number Insured Name Patient Relationship to Insured Coverage Start Date Coverage End Date [facility] [address] [place], [place] [id number] JERRI COBIAN Self - patient is the insured Medical (General) History Medical History History ICD Code Environmental allergies Hyperlipidemia Gout Cardiac catheterization, negative for si gnificant CAD Surgical History Surgery Date(Month/Year)
--- OUTSIDE RECORDS SUMMARY | 2025-10-13 19:26 | XMS_ITS | Clinical Summary ---
Author Organization [facility] Address [address] [place] [address] Phone Care Team Providers Care Employee Services Manager Name Role Phone Braden Sheets MD [...] topic Medical Devices Not on file Insurance [place] [employer] [address] [address] [place] [address] [facility] [address] [place] [address] [facility] [address] [place] [address] [facility] [employer] [place] [employer] [facility] [employer] [employer] [facility] [address] [place] [facility] [address] [place] [address] Care Teams Employee Services Manager Relationship Specialty Start Date End Date Braden Sheets MD [address] [place] [address] [place] [id number] PCP - General Internal Medicine 11/23/19 Additional Source Comments The information contained in this document represents components of the legal health record. It is not the complete legal health record.[facility]
== END 2025-10-13 15:55 | disposition home or self-care (01) ==
LOC: HO.HCS 15:31
PROVIDERS: PCP Internal Medicine; Visit Provider Internal Medicine Cardiovascular Disease
DX: I25.10 Atherosclerotic heart disease of native coronary artery without angina pectoris (principal); R00.2 Palpitations
CPT/HCPCS: 99214